=== PATIENT | male | born 1950 | race Caucasian/White ===

== ENCOUNTER 2019-10-11 14:57 | Emergency (ER) | payer MEDICARE, SELFPAY ==
[2019-10-11] VITALS (12 sets, daily range): BP systolic 115–143; BP diastolic 60–84; PULSE 98–107; RESP 14–110; TEMP 35.9–37.3; O2SAT 98–100
--- NOTE | ~2019-10-11 | XR_ITS ---
EXAMINATION: XR chest 1V portable EXAM DATE: 10/11/2019 16:51 INDICATION: Shortness of breath. TECHNIQUE: Frontal chest x-ray portable semierect projection. Comparison is made to prior examinatio n from 01/25/2019. FINDINGS: The lungs are clear. There are no pleural effusions. The cardiomediastinal silhouette is within normal limits. There is no pneumothorax suspected. The bones and soft tissues are unremarkab le. IMPRESSION: No acute cardiopulmonary findings. Reviewed, dictated and finalized at location [facility]. [employer]
--- NOTE | 2019-10-11 15:12 | ECG_ITS ---
Measurements Intervals [place] Rate: 102 P: 55 HI: 157 QRS: 50 QRSD: 86 T: 60 QT: 349 QTc: 455 Interpretive Statements SINUS TACHYCARDIA BASELINE ARTIFACT- I, II, III, AVR, V1 BORDERLINE ECG Electronically Signed On 10-11-2019 15:25:[address] [employer] by Eugenio Ray D.O.
[2019-10-11 15:52] LABS: Basophils Absolute Auto 0.03 K/mm3 (0.00-0.10); Basophils Percent Auto 0.2 % (0.0-1.0); Eosinophils Absolute Auto 0.02 K/mm3 (0.02-0.50); Eosinophils Percent Auto 0.1 % (1.0-6.0); Immature Granulocyte Absolute 0.12 K/mm3 (0.00-0.00); Immature Granulocyte Percent A 0.7 % (0.0-0.0); Lymphocytes Percent Auto 9.6 % (18.0-42.0); Mean Corpuscular HGB Conc 32.6 g/dL (32.0-36.0); Mean Corpuscular Hemoglobin 27.8 pg (27.0-31.0); Mean Corpuscular Volume 85.2 fL (78.0-102.0); Mean Platelet Volume 10.7 fl (8.7-11.0); Monocytes Absolute Auto 0.96 K/mm3 (0.10-0.90); Monocytes Percent Auto 5.8 % (2.0-11.0); Neutrophils Absolute Auto 13.9 K/mm3 (1.7-7.2); Neutrophils Percent Auto 83.6 % (50.0-70.0); Platelet Count Result 318 K/mm3 (150-420); Red Blood Count 2.16 M/mm3 (4.70-6.10); Red Cell Distribution Width 15.1 % (11.6-14.4); White Blood Count 16.7 K/mm3 (4.8-10.8)
[2019-10-11 15:55] LABS: Hematocrit 18.4 % (37.0-46.0)
[2019-10-11 16:04] LABS: INR 1.1; Partial Thromboplastin Time 20.3 SEC (22.3-31.6); Prothrombin Time 11.2 Seconds (9.64-11.0)
[2019-10-11 16:10] LABS: Occult Blood Positive (Negative)
[2019-10-11 16:10] LABS: Alanine Aminotransferase 22 U/L (16-63); Albumin Level 3.1 g/dL (3.4-5.0); Alkaline Phosphatase 41 U/L (46-116); Anion Gap 14.1 mmol/L (7-16); Aspartate Amino Transferase 14 U/L (15-37); Bilirubin,Total 0.8 mg/dL (0.00-1.00); Blood Urea Nitrogen 52 mg/dL (7-18); Calcium 7.9 mg/dL (8.5-10.1); Carbon Dioxide 26 mmol/L (21-32); Chloride 101 mmol/L (98-108); Estimated Glomerular Filt Rate 51; Glucose 172 mg/dL (70-99); Osmolality Calculated 304 mOsm/kg (285-295); Potassium 3.1 mmol/L (3.5-5.1); Sodium 138 mmol/L (136-145); Total Protein 5.7 g/dL (6.4-8.2)
--- NOTE | 2019-10-11 16:14 | ED.WEAKNESS ---
HPI - Weakness General Chief complaint: Weakness Stated complaint: weak, sob Time Seen by Provider: 10/11/19 15:20 Source: patient and family Mode of arrival: wheelchair Limitations: other ( weakness) History of Present Illness HPI Narrative: Chinmay is a very pleasant 69-year-old male patient. He comes by wheelchair from the office of . Chinmay had gone to 's office for weakness. He has been feeling weak for the past few days. On his cli nical examination, suspected anemia. He was sent from the office by wheelchair. Chinmay has been on aspirin and Plavix since he had a stroke on January 26, 2019. He was treated at [facility] for this. He was there for 2 weeks. Besides the stroke, Chinmay denies history of other medical problems. He does has history of hypertension. he is on medication for this. He has no history of any heart problems. He has never been a smoker.Dr Mendoza suspected GI blood loss from aspirin and Plavix. His rectal examination done in the emergency room shows a positive Hemoccult test. He has a prostatic nodule. The notes from report that the patient has had a prostatic biopsy and has prostatic calculi. However, the last time Chinmay was seen by the urologist was more than 2 years ago. I strongly advised him to see a urologist again for follow-up. the tells me that Chinmay had an EGD done by Dr. Osei in July 2019 at [facility]. At that time he was prescribed omeprazole. He took it for some time and then stopped it on his own, apparently because he thought he was taking too many pills. Complaint: generalized weakness Onset (ago): day(s) ( 2-3 days) Duration: constant Location: generalized Relieving factors: other ( feels better when resting) Exacerbating factors: exertion Context: other Associated symptoms: shortness of breath Related Data Home Medications Medication Instructions Recorded Confirmed atorvastatin 40 mg PO DAILY 10/11/19 10/11/19 clopidogrel 75 mg PO DAILY 10/11/19 10/11/19 duloxetine 30 mg PO DAILY 10/11/19 10/11/19 gabapentin 100 mg PO HS 10/11/19 10/11/19 hydrochlorothiazide 25 mg PO DAILY 10/11/19 10/11/19 irbesartan 75 mg PO DAILY 10/11/19 10/11/19 tramadol 50 mg PO DAILY 10/11/19 10/11/19 vardenafil 20 mg PO PRN PRN 10/11/19 10/11/19 Allergies Allergy/AdvReac Type Severity Reaction Status Date / Time lisinopril Allergy Unknown Flushing Verified 10/11/19 16:31 Review of Systems Review of Systems: All systems reviewed & are unremarkable except as noted in HPI and below Constitutional: Constitutional: Reports as per HPI, Reports no additional constitutional complaints, Denies chills and Denies fever(s) Eyes: Eyes: Reports as per HPI, Reports no additional eye complaints and Denies change in vision ENT: Reports system reviewed and no additional complaints, except as documented, Denies vertigo, Denies dizziness, Denies epistaxis and Denies sore throat Cardiovascular: Cardiovascular: Reports no additional cardiovascular complaints, Denies chest pain and Denies radiating jaw, neck or arm pain Respiratory: Respiratory: Reports as per HPI, Denies chest congestion, Denies cough, Reports dyspnea and Denies wheezing Gastrointestinal: Gastrointestinal: Reports no additional gastrointestinal complaints, Denies abdominal pain, Denies diarrhea, Denies nausea and Denies vomiting Genitourinary: Genitourinary: Reports no additional male genitourinary complaints, Denies hematuria and Denies dysuria Comments: see HPI narrative for details Musculoskeletal: Musculoskeletal: Reports no additional musculoskeletal complaints and Denies back pain Integumentary/Breasts: Skin/Breast: Reports system reviewed and no additional complaints, except as docu and Denies rash Neurologic: Reports system reviewed and no additional complaints, except as documented, Denies dizziness, Denies syncope, Denies headache(s), Denies foca
--- NOTE | 2019-10-11 16:24 | PC.NURSE ---
OXYGEN 2 L APPLIED - AWAITING BLOOD FROM LAB - NO CHANGE IN PATIENT STATUS
[2019-10-11] MEDS: SODIUM CHLORIDE 0.9% IV 1,000 ML 1 ML (16:37)
--- NOTE | 2019-10-11 16:39 | PC.NURSE ---
[facility] CALLED FOR POSSIBLE ADMISSION - PT STATES HE HAS SEEN DR LINDER IN THE PAST FOR THIS AND TOOK HIMSELF OFF OF [facility]
[2019-10-11 16:55] LABS: BNP 5.4 pg/mL (0-100)
[2019-10-11 16:59] LABS: Creatine Kinase 49 U/L (39-308); Troponin I < 0.02 ng/mL (0.00-0.056)
--- NOTE | 2019-10-11 17:50 | PC.NURSE ---
[facility] DECLINED TRANSFER - [facility] CALLED FOR POSSIBLE BED ASSIGNMENT PER PT REQUEST
--- NOTE | 2019-10-11 18:40 | PC.NURSE ---
PT IS TAKEN TO 210 FOR ER HOLD TO AWAIT BED ASSIGNMENT AT [facility] - BLOOD INFUSED IN ROOM - IV FLUSHED - REPORT CALLED TO VOLODYMYR WRIGHT
--- NOTE | 2019-10-11 19:15 | PC.NURSE ---
Patient to room 210. Saline lock noted to RAC. Patient denies pain/complaints/needs @ this time. No distress noted. Call light in reach.
[2019-10-11 19:32] LABS: Hematocrit 24.6 % (37.0-46.0); Hemoglobin 7.5 g/dL (12.4-15.3); Mean Corpuscular HGB Conc 30.5 g/dL (32.0-36.0); Mean Corpuscular Hemoglobin 28.1 pg (27.0-31.0); Mean Corpuscular Volume 92.1 fL (78.0-102.0); Mean Platelet Volume 10.4 fl (8.7-11.0); Platelet Count Result 411 K/mm3 (150-420); Red Blood Count 2.67 M/mm3 (4.70-6.10); Red Cell Distribution Width 15.7 % (11.6-14.4)
[2019-10-11 19:36] LABS: White Blood Count 21.1 K/mm3 (4.8-10.8)
[2019-10-11 20:24] LABS: BNP 11.8 pg/mL (0-100)
[2019-10-11 20:28] LABS: Lactic Acid 3.1 mmol/L (0.4-2.0)
--- NOTE | 2019-10-11 21:00 | PC.NURSE ---
Patient sitting in bedside chair talking with visitors. No distress noted. Call light in reach.
[2019-10-11] MEDS: SODIUM CHLORIDE 0.9% IV 250 ML 30 ML IV CONT (22:15)
--- NOTE | 2019-10-11 22:30 | PC.NURSE ---
Blood transfusion infusing without difficulty. No distress noted. Call light in reach.
--- NOTE | 2019-10-12 00:16 | PC.NURSE ---
Blood transfusion started to saline lock in RAC. Site flushes with ease. Patient denies pain/complaints/needs @ this time. No distress noted. Call light and personal belongings within reach.
--- NOTE | 2019-10-12 00:18 | PC.NURSE ---
Patient resting in bed. No distress noted. Denies pain/complaints/needs @ this time. No distress noted. Call light and personal belongings within reach.
[2019-10-12 00:30] VITALS: BP 126/73; PULSE 102; RESP 18; TEMP 36.9; O2SAT 99
[2019-10-12 00:45] VITALS: BP 124/68; PULSE 101; RESP 18; TEMP 36.8; O2SAT 99
--- NOTE | 2019-10-12 01:10 | PC.NURSE ---
Patient appears to be sleeping by the rise and fall of his chest. No distress noted. Call light in reach.
--- NOTE | 2019-10-12 01:40 | PC.NURSE ---
Blood finished transfusing. Patient tolerated well. Saline lock to RAC remains patent. Patient denies pain/complaints/needs @ this time except that he has the hiccups and can't get rid of them. No distress noted. Call light in reach.
[2019-10-12 02:32] LABS: Hematocrit 23.1 % (37.0-46.0); Hemoglobin 7.6 g/dL (12.4-15.3); Mean Corpuscular HGB Conc 32.9 g/dL (32.0-36.0); Mean Corpuscular Hemoglobin 28.8 pg (27.0-31.0); Mean Corpuscular Volume 87.5 fL (78.0-102.0); Mean Platelet Volume 10.5 fl (8.7-11.0); Platelet Count Result 343 K/mm3 (150-420); Red Blood Count 2.64 M/mm3 (4.70-6.10); Red Cell Distribution Width 14.9 % (11.6-14.4); White Blood Count 19.1 K/mm3 (4.8-10.8)
--- NOTE | 2019-10-12 03:49 | PC.NURSE ---
Dr. Greene notified of last lab results
--- NOTE | 2019-10-12 03:57 | PC.NURSE ---
Spoke with [facility] to check on waiting time for bed. Informed admitting of new lab results. Stated she was add to patients chart but at this time a bed will probably not be available until mid morning or afternoon
[2019-10-12 04:05] VITALS: BP 145/71; PULSE 98; RESP 18; TEMP 36.7; O2SAT 98
--- NOTE | 2019-10-12 05:50 | PC.NURSE ---
Patient appears to be sleeping by the rise and fall of his chest. Respirations even and unlabored. No distress noted. Call light in reach.
--- NOTE | 2019-10-12 06:32 | PC.NURSE ---
Patient appears to be sleeping by the rise and fall of his chest. Respirations even and unlabored. No distress noted. Call light within reach.
[2019-10-12 08:22] VITALS: BP 137/72; PULSE 102; RESP 18; TEMP 36.6; O2SAT 98
--- NOTE | 2019-10-12 08:24 | PC.NURSE ---
Patient denies pain,nausea,dizziness. Call light in reach.
[2019-10-12 11:14] VITALS: BP 138/76; PULSE 96; RESP 20; TEMP 36.8; O2SAT 98
--- NOTE | 2019-10-12 11:15 | PC.NURSE ---
Patient states he feels ok.
--- NOTE | 2019-10-12 15:34 | PC.NURSE ---
CALL PLACED TO [facility], NO BED AVAILABLE - CALL PLACED TO DR LINDER AT [facility], NO BED AVAILABILITY - CALL PLACED TO [facility] WITH BED AVAILABLE - SPOKE AGAIN WITH DR LINDER ABOUT FOLLOW UP IN THE OFFICE - ERP AT BEDSIDE WITH FAMILY AND THEY ARE AGREEABLE WITH FOLLOW UP OUTPATIENT TOMORROW.
--- NOTE | 2019-10-12 15:39 | ED.WEAKNESS ---
HPI - Weakness General Chief complaint: Weakness Stated complaint: weak, sob Time Seen by Provider: 10/11/19 15:20 Source: patient and family Mode of arrival: wheelchair Limitations: other ( weakness) History of Present Illness Complaint: generalized weakness Location: generalized Relieving factors: other ( feels better when resting) Exacerbating factors: exertion Context: other Associated symptoms: shortness of breath Related Data Home Medications Medication Instructions Recorded Confirmed atorvastatin 40 mg PO DAILY 10/11/19 10/11/19 clopidogrel 75 mg PO DAILY 10/11/19 10/11/19 duloxetine 30 mg PO DAILY 10/11/19 10/11/19 gabapentin 100 mg PO HS 10/11/19 10/11/19 hydrochlorothiazide 25 mg PO DAILY 10/11/19 10/11/19 irbesartan 75 mg PO DAILY 10/11/19 10/11/19 tramadol 50 mg PO DAILY 10/11/19 10/11/19 vardenafil 20 mg PO PRN PRN 10/11/19 10/11/19 Allergies Allergy/AdvReac Type Severity Reaction Status Date / Time lisinopril Allergy Unknown Flushing Verified 10/11/19 16:31 PMFSH Past Medical History Medical History (Updated 10/11/19 @ 19:59 by Tavares Greene MD) CVA, old, hemiparesis Hypertension Surgical History Surgical History (Updated 10/11/19 @ 16:29 by Tavares Greene MD) History of tonsillectomy Family History Family History (Updated 10/11/19 @ 16:30 by Tavares Greene MD) Mother Heart disease Father Heart disease Social History Social History Smoking status: Never smoker Alcohol intake: never Course Course Emergency Course: Patient has been in ER hold for the last 24 hours has been stable received 2units of packed red blood cells, this is cross coverage was seen by Dr. Mack previously, the patient has some improved H&H status current blood pressure is 138/76 with a heart rate of 90, talked to the patient's some GI doctor and agreed to see the patient tomorrow on 2019 for further workup with possible EGD and colonoscopy. Talk to family and they are agreeable that the they will call for an appointment to see there are GI doctor in his clinic for further workup and evaluation. The patient denies any abdominal pain and there has not been any GI bleed no rectal bleeding no nausea vomiting no abdominal pain. Vital Signs Vital signs: Vital Signs Temperature 36.7 C 10/11/19 15:05 Pulse Rate 103 H 10/11/19 15:05 Respiratory Rate 16 10/11/19 15:05 Blood Pressure 117/68 10/11/19 15:05 Pulse Oximetry 100 10/11/19 15:05 Temperature 36.8 C 10/12/19 11:14 Pulse Rate 96 10/12/19 11:14 Respiratory Rate 20 10/12/19 11:14 Blood Pressure 138/76 10/12/19 11:14 Pulse Oximetry 98 10/12/19 11:14 MDM - Weakness Lab Data Result diagrams: 10/12/19 02:28 10/11/19 15:12 Labs: Lab Results 10/11/19 10/11/19 10/11/19 Range/Units 15:12 15:12 15:12 WBC 16.7 H (4.8-10.8) K/mm3 RBC 2.16 L (4.70-6.10) M/mm3 Hgb 6.0 L* (12.4-15.3) g/dL Hct 18.4 L* (37.0-46.0) % MCV 85.2 (78.0-102.0) fL MCH 27.8 (27.0-31.0) pg MCHC 32.6 (32.0-36.0) g/dL RDW 15.1 H (11.6-14.4) % Plt Count 318 (150-420) K/mm3 MPV 10.7 (8.7-11.0) fl Immature Gran % (Auto) 0.7 H (0.0-0.0) % Neut % (Auto) 83.6 H (50.0-70.0) % Lymph % (Auto) 9.6 L (18.0-42.0) % Adams % (Auto) 5.8 (2.0-11.0) % Eos % (Auto) 0.1 L (1.0-6.0) % Baso % (Auto) 0.2 (0.0-1.0) % Lymph # (Auto) 1.60 (1.10-4.50) K/mm3 Adams # (Auto) 0.96 H (0.10-0.90) K/mm3 Eos # (Auto) 0.02 (0.02-0.50) K/mm3 Baso # (Auto) 0.03 (0.00-0.10) K/mm3 Abs Immat Gran (auto) 0.12 H (0.00-0.00) K/mm3 Absolute Neuts (auto) 13.9 H (1.7-7.2) K/mm3 Absolute Nucleated RBC 0.00 (0.00-0.00) K/mm3 Nucleated RBC % 0.0 (0-0.0) % PT 11.2 H (9.64-11.0) Seconds INR 1.1 APTT 20.3 L (22.3-31.6) SEC Sodium (136-145) mmol/L Potassium (3.5-5.1) mmol/L Chlo
--- NOTE | 2019-10-12 15:45 | PC.NURSE ---
Patient transported off of floor by ER nurse
[2019-10-12 15:54] VITALS: BP 163/79; PULSE 104; O2SAT 99
--- NOTE | 2019-11-09 13:12 | PC.NURSE ---
Patnoprazole discontinued at 3 [id number]
== END 2019-10-12 16:10 | disposition home or self-care (01) ==
PROVIDERS: Emergency Provider Surgery; PCP Internal Medicine
DX: D64.9 Anemia, unspecified (principal); K92.2 Gastrointestinal hemorrhage, unspecified; Z86.73 Personal history of transient ischemic attack (TIA), and cerebral infarction without residual deficits; I10 Essential (primary) hypertension; R06.00 Dyspnea, unspecified
CPT/HCPCS: 36415; 36430; 71045; 80053; 82272; 82550; 82553; 83605; 83880; 84484; 85025; 85027; 85610; 85730; 86850; 86900; 86901; 86920; 86923; 87040; 93005; 96361; 96365; 96366; 96367; 99284; 99285; A9270; C9113; J2543; J7030; J7050; J7060; P9016

== ENCOUNTER 2019-10-13 02:57 | Day surgery (SDC) | payer MEDICARE, SELFPAY ==
[2019-10-13 08:45] VITALS: BMI 27.6
[2019-10-13 10:26] VITALS: BP 144/69; PULSE 100; RESP 16; TEMP 37.3; O2SAT 100; BMI 28.5
--- NOTE | 2019-10-13 10:46 | WPDANESEPPF ---
Anes - Initial Pre Proc Eval Procedure: Operation Date: 10/13/19 12:00 Proposed Procedures p Esophagogastroduodenoscopy - Fito Aguayo MD Date/Time: 10/13/19 10:46 Surgeon: Fito Aguayo MD Pre Op Diagnosis: Intestinal Bleed Patient Data Age: 69 Gender: M Height: 1.7 m Weight: 80 kg Allergies Allergy/AdvReac Type Severity Reaction Status Date / Time lisinopril Allergy Unknown Itching Verified 10/13/19 08:35 Home Medications Medication Instructions Recorded Confirmed Type atorvastatin 40 mg PO DAILY 10/11/19 10/13/19 History clopidogrel 75 mg PO DAILY 10/11/19 10/13/19 History duloxetine 30 mg PO BID 10/11/19 10/13/19 History hydrochlorothiazide 25 mg PO DAILY 10/11/19 10/13/19 History irbesartan 75 mg PO DAILY 10/11/19 10/13/19 History pantoprazole 40 mg PO HS 10/13/19 10/13/19 History Patient hx anesthesia problems: none Family hx anesthesia problems: none PMFSH Past Medical History Medical History (Updated 10/13/19 @ 10:47 by Raúl Caballero MD) BPH (benign prostatic hyperplasia) CVA, old, 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 RIGHT SIDED WEAKNESS AND RIGHT SLDR PAIN Gastroesophageal reflux disease Hypercholesterolemia Hypertension PUD (peptic ulcer disease) NON BLEEDING GASTRIC 06/2019 Surgical History Surgical History (Updated 10/11/19 @ 16:29 by Tavares Greene MD) History of tonsillectomy Family History Family History (Updated 10/11/19 @ 16:30 by Tavares Greene MD) Mother Heart disease Father Heart disease Social History Social History Smoking status: Never smoker Alcohol intake: never Anes - Eval Final PreProcedure Day of Procedure 10/13/19 10:46 Patient weight: overweight Heart: regular rate and rhythm Lungs: clear to auscultation and normal air movement Airway: Mallampati scale class II Neurological: alert and oriented Last oral intake: >/= 8 hours ASA classification: III Emergent: no Anesthetic plan: proceed Anesthesia type and monitoring: general GIVS Informed Consent: The patient's anesthetic plan and its attendant risks and benefits were discussed with the patient/family/POA. Questions were solicited and answers provided to the satisfaction of the patient/family/POA.
[2019-10-13] MEDS: LACTATED RINGERS 1,000 ML 150 ML IV CONT (11:28)
--- NOTE | 2019-10-13 12:25 | PM.HPGS ---
History of Present Illness History of Present Illness Consent: Risks, benefits, and alternatives have been discussed and questions answered. Patient agrees to proceed with procedure. Chief complaint: Intestinal Bleed Narrative: Chinmay Julian is a 69 year old male with symtomatic anemia that required blood transfusion yesterday at [facility]. EGD several weeks by me showed non-bleeding ulcers however he has not been taking PPI as he was supposed to. He never had a colonoscopy. Review of Systems Constitutional: Constitutional: Reports lethargy and Reports malaise Eyes: Eyes: Denies blurry vision ENT: Reports Normal hearing present, Denies headache(s) and Denies neck pain Cardiovascular: Cardiovascular: Denies chest pain and Denies dyspnea Respiratory: Respiratory: Denies dyspnea Gastrointestinal: Gastrointestinal: Reports no additional gastrointestinal complaints Genitourinary: Genitourinary: Denies dysuria Musculoskeletal: Musculoskeletal: Denies neck pain Integumentary/Breasts: Skin/Breast: Denies dry skin Neurologic: Reports Normal hearing present, Denies headache(s) and Denies weakness Psychiatric: Psychiatric: Denies anxiety Endocrine: Endocrine: Denies change in body appearance Hematologic/Lymphatic: Hematologic/Lymphatic: Denies easy bleeding Allergic/Immunologic: Allergic/Immunologic: Denies urticaria PMFSH Past Medical History Medical History (Updated 10/13/19 @ 12:27 by Fito Aguayo MD) Acute blood loss anemia BPH (benign prostatic hyperplasia) CVA, old, 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 RIGHT SIDED WEAKNESS AND RIGHT SLDR PAIN Gastroesophageal reflux disease Hypercholesterolemia Hypertension PUD (peptic ulcer disease) NON BLEEDING GASTRIC 06/2019 Surgical History Surgical History (Updated 10/11/19 @ 16:29 by Tavares Greene MD) History of tonsillectomy Family History Family History (Updated 10/11/19 @ 16:30 by Tavares Greene MD) Mother Heart disease Father Heart disease Social History Social History Smoking status: Never smoker Alcohol intake: never Meds Home Medications and Allergies Home Medications Medication Instructions Recorded Confirmed Type atorvastatin 40 mg PO DAILY 10/11/19 10/13/19 History clopidogrel 75 mg PO DAILY 10/11/19 10/13/19 History duloxetine 30 mg PO BID 10/11/19 10/13/19 History hydrochlorothiazide 25 mg PO DAILY 10/11/19 10/13/19 History irbesartan 75 mg PO DAILY 10/11/19 10/13/19 History pantoprazole 40 mg PO HS 10/13/19 10/13/19 History Allergies Allergy/AdvReac Type Severity Reaction Status Date / Time lisinopril Allergy Unknown Itching Verified 10/13/19 11:12 Vital Signs Vital Signs - 24 hr 10/13/19 10:26 Temperature 99.2 F Pulse Rate 100 Respiratory Rate 16 Blood Pressure 144/69 H Pulse Oximetry 100 Exam Const: General: comfortable and no acute distress HENMT: General nose exam: Normal nares present Eyes: General: appearance normal, both eyes and all related structures Neck: Neck: no JVD Resp: Auscultation: clear to auscultation bilaterally Cardio: Rate: regular rate Rhythm: regular rhythm GI: Inspection: non-distended GI Palp: Yes Soft to palpation Skin: General skin exam: normal color Neuro: General: gait normal Speech: normal speech Other: chronic weakness right side Extrem: General: normal to inspection Psych: Mental Status: mental status grossly normal Assessment and Plan Assessment and plan (1) Acute blood loss anemia: Code(s): D62 - Acute posthemorrhagic anemia Status: Acute Assessment and Plan: will proceed with EGD, he has not been using his PPI (2) PUD (peptic ulcer disease): Code(s): K27.9 - Peptic ulcer, site unspecified, unspecified as acute or chronic, without hemorrhage or perforation Status: Acute (3) Gastroesophageal reflux disease: Qualifiers: Esophagitis presence: esophagiti
[2019-10-13 12:30] VITALS: BP 120/66; PULSE 96; RESP 20; O2SAT 100
[2019-10-13 12:40] VITALS: BP 122/64; PULSE 88; RESP 23; O2SAT 100
[2019-10-13 12:50] VITALS: BP 138/65; PULSE 84; RESP 18; O2SAT 100
== END 2019-10-13 13:15 | disposition home or self-care (01) ==
PROVIDERS: PCP Internal Medicine; Visit Provider Internal Medicine Gastroenterology
PROC: 0DJ08ZZ Inspection of Upper Intestinal Tract, Via Natural or Artificial Opening Endoscopic (ICD-10-PCS; CPT 43235; principal; 2019-10-13 12:00)
DX: K26.9 Duodenal ulcer, unspecified as acute or chronic, without hemorrhage or perforation (principal); K22.5 Diverticulum of esophagus, acquired; K22.2 Esophageal obstruction; K44.9 Diaphragmatic hernia without obstruction or gangrene; K29.80 Duodenitis without bleeding; D62 Acute posthemorrhagic anemia; I10 Essential (primary) hypertension; E78.00 Pure hypercholesterolemia, unspecified; K21.9 Gastro-esophageal reflux disease without esophagitis; N40.0 Benign prostatic hyperplasia without lower urinary tract symptoms; I69.351 Hemiplegia and hemiparesis following cerebral infarction affecting right dominant side; Z79.02 Long term (current) use of antithrombotics/antiplatelets
CPT/HCPCS: 43235; J2704; J7120

== ENCOUNTER 2019-10-27 16:56 | Outpatient (CLI) | payer MEDICARE, SELFPAY ==
[2019-10-27 17:18] LABS: Basophils Absolute Auto 0.02 K/mm3 (0.00-0.10); Basophils Percent Auto 0.4 % (0.0-1.0); Eosinophils Percent Auto 6.6 % (1.0-6.0); Hematocrit 30.1 % (37.0-46.0); Hemoglobin 9.1 g/dL (12.4-15.3); Immature Granulocyte Absolute 0.01 K/mm3 (0.00-0.00); Immature Granulocyte Percent A 0.2 % (0.0-0.0); Immature Reticulocyte Fraction 17.6 % (2.0-16.52); Lymphocytes Absolute Auto 1.25 K/mm3 (1.10-4.50); Lymphocytes Percent Auto 27.6 % (18.0-42.0); Mean Corpuscular HGB Conc 30.2 g/dL (32.0-36.0); Mean Corpuscular Hemoglobin 27.3 pg (27.0-31.0); Mean Corpuscular Volume 90.4 fL (78.0-102.0); Mean Platelet Volume 9.6 fl (8.7-11.0); Monocytes Absolute Auto 0.34 K/mm3 (0.10-0.90); Monocytes Percent Auto 7.5 % (2.0-11.0); Neutrophils Absolute Auto 2.6 K/mm3 (1.7-7.2); Neutrophils Percent Auto 57.7 % (50.0-70.0); Platelet Count Result 418 K/mm3 (150-420); Red Blood Count 3.33 M/mm3 (4.70-6.10); Red Cell Distribution Width 15.9 % (11.6-14.4); Reticulocyte Hemoglobin Conten 29.6 pg (28.0-35.0); Reticulocyte Percent 3.06 % (0.50-1.50); White Blood Count 4.5 K/mm3 (4.8-10.8)
[2019-10-27 18:05] LABS: Alanine Aminotransferase 43 U/L (16-63); Albumin Level 3.2 g/dL (3.4-5.0); Alkaline Phosphatase 90 U/L (46-116); Anion Gap 13.7 mmol/L (7-16); Aspartate Amino Transferase 32 U/L (15-37); Bilirubin,Total 0.5 mg/dL (0.00-1.00); Blood Urea Nitrogen 20 mg/dL (7-18); Calcium 8.4 mg/dL (8.5-10.1); Carbon Dioxide 31 mmol/L (21-32); Chloride 102 mmol/L (98-108); Estimated Glomerular Filt Rate 57; Glucose 105 mg/dL (70-99); Osmolality Calculated 298 mOsm/kg (285-295); Potassium 3.7 mmol/L (3.5-5.1); Sodium 143 mmol/L (136-145); Total Protein 6.4 g/dL (6.4-8.2)
== END 2019-10-27 16:57 | disposition home or self-care (01) ==
LOC: CHSLAB 16:57
PROVIDERS: PCP Internal Medicine; Visit Provider Internal Medicine
DX: D64.9 Anemia, unspecified (principal)
CPT/HCPCS: 36415; 80053; 85025; 85046

== ENCOUNTER 2019-11-23 10:40 | Day surgery (SDC) | payer MEDICARE, SELFPAY ==
--- NOTE | 2019-11-23 13:07 | P.OPB_ITS ---
Procedure Note - Brief Procedure Note - Brief Date of procedure: 11/23/19 Pre-op diagnosis: egd screening colonoscopy Post-op diagnosis: other (- mild duodenitis, healed small ulcer in bulb, no bleeding. - mild gastritis - 1 cm hiatal hernia - esophageal ring, dilated at 18 mm with TTS balloon.) Procedure performed: EGD with esophageal dilation Description of procedure: After we obtained consent, the patient was brought to the endoscopy suite. After we did a time-out, the patient was placed in the left lateral decubitus position and then we put a bite block in his mouth. He received mac anesthesia. Then introduced endoscope through his mouth and was advanced under direct visualization to the esophagus, stomach and finally to the duodenum. I found duodenitis in the bulb of the duodenum, mild erythema and also evidence of a healed ulcer without any bleeding (only scarring), significantly improved from the previous endoscopy evaluation. There is no estigmata of any bleeding. Then I pulled back the scope into the stomach, careful evaluation of the stomach including the cardia and fundus on retroflexed view showed evidence of mild gastritis with only erythema without any ulcers, no erosions. Then I pulled back the scope and the hiatus is located 38 cm with the GE junction at 39 cm, this is about 1 cm in size, I also found a non- obstructive esophageal ring at the cardia, and I decided to introduce a TTS balloon was inflated at 18 mm for 30 seconds across the ring, at the end of the dilatation I notice an expected small tear. The remainder of the esophagus was unremarkable. Then I removed the scope Anesthesia: MAC Surgeon: Fito Aguayo MD Complications: No immediate complications Condition: stable Disposition: other (- keep using PPI) Findings: - mild duodenitis, healed small ulcer in bulb, no bleeding. - mild gastritis - 1 cm hiatal hernia - esophageal ring, dilated at 18 mm with TTS balloon.
--- NOTE | 2019-11-23 13:17 | PM.OP ---
Procedure Note - Brief Procedure Note - Brief Date of procedure: 11/23/19 Pre-op diagnosis: egd screening colonoscopy screening colonoscopy, never had one. Procedure performed: colonoscopy with polypectomy (forceps) Description of procedure: patient signed consent and he was agreeable to proceed. He was brought to the endoscopy suite, we did a time-out and used mac anesthesia. He was placed in the left lateral decubitus position and after he was sedated I performed a rectal exam that was unremarkable. Then I introduced the colonoscope through the anus and advanced under direct visualization to the cecum. I identified the appendiceal orifice and the ileocecal valve. The quality of the prep was good. Then I started withdrawing the scope very slowly for which I took more than 6 minutes of careful evaluation. I found a 2 mm polyp in the cecum that was removed using biopsy forceps polypectomy technique. Other than that there was no any other polyps, there was no colitis. I found several diverticula throughout the colon consistent with moderate diverticulosis but no any active inflammation. Finally retroflexed view of the rectum was unremarkable. Then I removed the scope. Surgeon: Fito Aguayo MD Pathology: yes Complications: No immediate complications Condition: stable Findings: - diverticulosis and small polyp in cecum removed with biopsy - next colonoscopy in 5 years - follow up with pcp as needed
== END 2019-11-23 14:00 | disposition home or self-care (01) ==
LOC: CHSSURGERY 10:43
PROVIDERS: PCP Internal Medicine; Visit Provider Internal Medicine Gastroenterology
DX: D62 Acute posthemorrhagic anemia (principal); Z12.11 Encounter for screening for malignant neoplasm of colon; K27.9 Peptic ulcer, site unspecified, unspecified as acute or chronic, without hemorrhage or perforation; D12.0 Benign neoplasm of cecum; K22.2 Esophageal obstruction; K44.0 Diaphragmatic hernia with obstruction, without gangrene; K29.80 Duodenitis without bleeding; K21.9 Gastro-esophageal reflux disease without esophagitis; K57.90 Diverticulosis of intestine, part unspecified, without perforation or abscess without bleeding; I69.351 Hemiplegia and hemiparesis following cerebral infarction affecting right dominant side; I10 Essential (primary) hypertension
CPT/HCPCS: 43249; 45380; 813; 88305; C1726; J2704; J7120

== ENCOUNTER 2019-11-26 10:30 | Outpatient (CLI) | payer MEDICARE, SELFPAY ==
[2019-11-26 11:02] LABS: Basophils Absolute Auto 0.05 K/mm3 (0.00-0.10); Basophils Percent Auto 0.8 % (0.0-1.0); Eosinophils Absolute Auto 0.29 K/mm3 (0.02-0.50); Eosinophils Percent Auto 4.6 % (1.0-6.0); Hematocrit 44.4 % (37.0-46.0); Hemoglobin 13.9 g/dL (12.4-15.3); Immature Granulocyte Absolute 0.01 K/mm3 (0.00-0.00); Immature Granulocyte Percent A 0.2 % (0.0-0.0); Lymphocytes Absolute Auto 1.64 K/mm3 (1.10-4.50); Lymphocytes Percent Auto 25.9 % (18.0-42.0); Mean Corpuscular HGB Conc 31.3 g/dL (32.0-36.0); Mean Corpuscular Hemoglobin 27.5 pg (27.0-31.0); Mean Corpuscular Volume 87.9 fL (78.0-102.0); Mean Platelet Volume 10.6 fl (8.7-11.0); Monocytes Absolute Auto 0.54 K/mm3 (0.10-0.90); Monocytes Percent Auto 8.5 % (2.0-11.0); Neutrophils Absolute Auto 3.8 K/mm3 (1.7-7.2); Platelet Count Result 288 K/mm3 (150-420); Red Blood Count 5.05 M/mm3 (4.70-6.10); Red Cell Distribution Width 14.2 % (11.6-14.4); White Blood Count 6.3 K/mm3 (4.8-10.8)
[2019-11-26 11:39] LABS: Ferritin 19 ng/mL (26-388); Prostate Specific Antigen 10.8 ng/mL (< OR = 4.0)
== END 2019-11-26 10:31 | disposition home or self-care (01) ==
LOC: CHSLAB 10:31
PROVIDERS: PCP Internal Medicine; Visit Provider Urology
DX: D64.9 Anemia, unspecified (principal); Z12.5 Encounter for screening for malignant neoplasm of prostate
CPT/HCPCS: 36415; 82728; 84153; 85025; G0103

== ENCOUNTER 2020-08-11 23:40 | Emergency (ER) | payer MEDICARE, SELFPAY ==
--- NOTE | ~2020-08-11 | XR_ITS ---
EXAMINATION: XR chest 1V portable 08/12/2020 00:17 INDICATION: Right-sided weakness. Hypertension. PROCEDURE: PA and lateral views of the chest COMPARISON: Comparison to multiple prior studies sequentially, with oldest reviewed study dated 06/04. FINDINGS: The lungs are clear. The cardiomediastinal silhouette is within normal limits. There are no pleural effusions. There is no pneumothorax suspected. IMPRESSION: 1: NO ACUTE CARDIOPULMONARY DISEASE. Reviewed, dictated and finalized at location A. CH LIBRARY CLERK
--- NOTE | ~2020-08-11 | CT_ITS ---
EXAMINATION: CT brain wo con DATE: 08/12/2020 00:16 INDICATION: Right upper extremity weakness. History of stroke. TECHNIQUE: Computed tomography (CT) of the head was performed without intravenous contrast. The dose- length product was 605.33 mGy-cm. The mA was adjusted according to patient size. Iterative reconstruc tion technique was employed. COMPARISON: CT dated 01/26/2019 FINDINGS: There is a chronic infarction of the left basal ganglia/clemons radiata. No acute intracrani al hemorrhage, infarction, mass or mass effect. No ventriculomegaly or midline shift. Basilar cistern s are patent. Paranasal sinuses and mastoids are pneumatized. No depressed skull fractures. IMPRESSION: 1. No acute intracranial abnormality. 2: Chronic infarction of the left basal ganglia/clemons radiata. Reviewed, dictated and finalized at location A. KEEPER
--- NOTE | 2020-08-11 23:50 | ED.AMS ---
HPI - Altered Mental Status General Chief Complaint: Altered Mental Status Stated Complaint: 70YO male w/ 2hr (9:40pm) gradual onset of RUE weakness while watching a movie. Patient has been off his blood thinner since thanksgiving sec to seed implants placement in his prostate. He comes into ED w/ his for eval. STROKE SYMPTOMS Related Data Home Medications Medication Instructions Recorded Confirmed atorvastatin 40 mg PO DAILY 10/11/19 08/12/20 clopidogrel 75 mg PO DAILY 10/11/19 08/12/20 duloxetine 30 mg PO BID 10/11/19 08/12/20 hydrochlorothiazide 25 mg PO DAILY 10/11/19 08/12/20 irbesartan 75 mg PO DAILY 10/11/19 08/12/20 Allergies Allergy/AdvReac Type Severity Reaction Status Date / Time lisinopril Allergy Unknown Itching Verified 01/21/20 09:17 Review of Systems Review of Systems: All systems reviewed & are unremarkable except as noted in HPI and below Constitutional: Constitutional: Reports no additional constitutional complaints and Reports fever(s) Eyes: Eyes: Reports no additional eye complaints ENT: Reports system reviewed and no additional complaints, except as documented Cardiovascular: Cardiovascular: Reports no additional cardiovascular complaints Respiratory: Respiratory: Reports no additional respiratory complaints Gastrointestinal: Gastrointestinal: Reports no additional gastrointestinal complaints Genitourinary: Genitourinary: Reports dysuria Musculoskeletal: Musculoskeletal: Reports no additional musculoskeletal complaints Integumentary/Breasts: Skin/Breast: Reports system reviewed and no additional complaints, except as docu Neurologic: Reports system reviewed and no additional complaints, except as documented, Denies vertigo, Denies dizziness, Denies syncope, Reports headache(s) and Reports focal weakness (H/O RUE Weakness) Psychiatric: Psychiatric: Reports no additional psychiatric complaints Endocrine: Endocrine: Reports no additional endocrine complaints Hematologic/Lymphatic: Hematologic/Lymphatic: Reports no additional hematologic/lymphatic complaints Allergic/Immunologic: Allergic/Immunologic: Reports no additional allergic/immunologic complaints [facility] Past Medical History Medical History Acute blood loss anemia BPH (benign prostatic hyperplasia) CVA, old, 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 RIGHT SIDED WEAKNESS AND RIGHT SLDR PAIN Gastroesophageal reflux disease Hypercholesterolemia Hypertension Prostate CA PUD (peptic ulcer disease) NON BLEEDING GASTRIC 06/2019 Surgical History Surgical History History of tonsillectomy Family History Family History Mother Heart disease Father Heart disease Social History Social History Smoking status: Never smoker Alcohol intake: never Gender identity (if verbalized by the patient): Male Exam Const: General: healthy appearing, no acute distress and alert Nutritional Appearance: well nourished Orientation/consciousness: patient oriented x3 Limitations: no limitations HENMT: Head: normal to inspection General nose exam: Normal nares present Face and sinus: normal facial exam Mouth: Yes lip normal and Yes moist mucous membranes Teeth and gingiva: dentition normal Eyes: Conjunctivae: conjunctivae normal EOM: EOMs intact bilaterally Direct Ophthalmoscopy: no photophobia Neck: Neck: normal visual inspection and no lymphadenopathy Chest: Chest palpation & inspection: normal inspection of the chest Resp: Effort & Inspection: normal respiratory effort Auscultation: clear to auscultation bilaterally Cardio: Rate: regular rate Rhythm: regular rhythm GI: Inspection: non-distended GI Palp: Yes Soft to palpation, No Tenderness to palpation present (GI) and No Guarding due to palpatio
[2020-08-12 00:04] VITALS: BP 168/85; PULSE 88; RESP 16; TEMP 38; O2SAT 95
[2020-08-12 00:23] LABS: Basophils Absolute Auto 0.04 K/mm3 (0.00-0.10); Basophils Percent Auto 0.3 % (0.0-1.0); Eosinophils Absolute Auto 0.14 K/mm3 (0.02-0.50); Eosinophils Percent Auto 1.2 % (1.0-6.0); Hematocrit 55.6 % (37.0-46.0); Hemoglobin 17.7 g/dL (12.4-15.3); Immature Granulocyte Absolute 0.03 K/mm3 (0.00-0.00); Immature Granulocyte Percent A 0.3 % (0.0-0.0); Lymphocytes Absolute Auto 1.28 K/mm3 (1.10-4.50); Lymphocytes Percent Auto 11.1 % (18.0-42.0); Mean Corpuscular HGB Conc 31.8 g/dL (32.0-36.0); Mean Corpuscular Hemoglobin 27.7 pg (27.0-31.0); Mean Corpuscular Volume 87.1 fL (78.0-102.0); Mean Platelet Volume 9.8 fl (8.7-11.0); Monocytes Absolute Auto 1.09 K/mm3 (0.10-0.90); Monocytes Percent Auto 9.5 % (2.0-11.0); Neutrophils Absolute Auto 8.9 K/mm3 (1.7-7.2); Neutrophils Percent Auto 77.6 % (50.0-70.0); Platelet Count Result 287 K/mm3 (150-420); Red Blood Count 6.38 M/mm3 (4.70-6.10); Red Cell Distribution Width 13.1 % (11.6-14.4); White Blood Count 11.5 K/mm3 (4.8-10.8)
[2020-08-12 00:37] LABS: Add Urine Microscopic? YES; Appearance Urine Sl Cloudy (Clear); Bilirubin Urine Negative (Negative); Blood Urine 3+ (Negative); Color Urine Yellow (Yellow); Glucose Urine UA Negative (Negative); Ketones Urine Negative (Negative); Leukocyte Esterase Ur 2+ LEU/UL (Negative); Nitrate Urine Positive (Negative); Partial Thromboplastin Time 26.1 SEC (23.90-30.70); Protein Urine 1+ (Negative); Prothrombin Time 10.8 Seconds (9.50-12.10); pH Urine 6.5 (5.0-8.0)
[2020-08-12 00:40] LABS: Amphetamine Screen Urine Negative (Negative); Barbiturate Screen Urine Negative (Negative); Benzodiazepines Screen Urine Negative (Negative); Cannabinoid Screen Urine Negative (Negative); Cocaine Screen Urine Negative (Negative); Methadone Screen Urine Negative (Negative); Opiate Screen Urine Negative (Negative); Phencyclidine Screen Urine Negative (Negative)
[2020-08-12 00:43] LABS: Alanine Aminotransferase 46 U/L (16-63); Albumin Level 4.1 g/dL (3.4-5.0); Alkaline Phosphatase 80 U/L (46-116); Anion Gap 8 mmol/L (8-16); Aspartate Amino Transferase 16 U/L (15-37); Bilirubin,Total 1.8 mg/dL (0.00-1.00); Blood Urea Nitrogen 22 mg/dL (7-18); Calcium 9.2 mg/dL (8.5-10.1); Carbon Dioxide 30 mmol/L (21-32); Chloride 103 mmol/L (98-108); Creatine Kinase 86 U/L (39-308); Estimated CRCL calculation 44 ml/min; Estimated Glomerular Filt Rate 53; Ethanol 4 mg/dL (0-6); Glucose 130 mg/dL (70-99); Osmolality Calculated 297 mOsm/kg (285-295); Potassium 3.5 mmol/L (3.5-5.1); Sodium 141 mmol/L (136-145); Total Protein 7.8 g/dL (6.4-8.2); Troponin I 6.5 ng/L (0.00-60.4)
[2020-08-12 00:45] LABS: Lactic Acid Reflex 1.4 mmol/L (0.4-2.0)
[2020-08-12 00:47] LABS: Bacteria Urine 4+ /hpf; RBC Urine >75 /hpf (0-2); Squamous Epithelial Cell Urine None seen /hpf (Few); WBC Urine 51-75 /hpf (0-3)
[2020-08-12 00:48] LABS: Influenza Control Valid (Valid); SARS-CoV-2 Ag Negative (Negative)
[2020-08-12] MEDS: cefTRIAXone 1 GM VIAL IM (01:15)
[2020-08-12 01:21] VITALS: BP 150/80; PULSE 82; RESP 18; TEMP 37.2; O2SAT 95
== END 2020-08-12 01:24 | disposition home or self-care (01) ==
PROVIDERS: Emergency Provider Family Medicine; PCP Internal Medicine
DX: N39.0 Urinary tract infection, site not specified (principal); I69.859 Hemiplegia and hemiparesis following other cerebrovascular disease affecting unspecified side; Z79.899 Other long term (current) drug therapy; K21.9 Gastro-esophageal reflux disease without esophagitis; E78.00 Pure hypercholesterolemia, unspecified; I10 Essential (primary) hypertension; Z85.46 Personal history of malignant neoplasm of prostate; Z20.828 Contact with and (suspected) exposure to other viral communicable diseases
CPT/HCPCS: 36415; 70450; 71045; 80053; 80307; 81001; 82550; 83605; 84484; 85025; 85610; 85730; 87077; 87086; 87088; 87186; 87426; 87804; 93005; 96372; 99283; 99284; J0696

== ENCOUNTER 2020-09-05 10:40 | Outpatient (CLI) | payer MEDICARE, SELFPAY | END 2020-09-05 10:41 | disposition home or self-care (01) | LOC: ANHSURGERY 10:42 | PROVIDERS: PCP Internal Medicine; Visit Provider Urology | DX: C61 Malignant neoplasm of prostate (principal); Z01.818 Encounter for other preprocedural examination | CPT/HCPCS: 87086 ==

== ENCOUNTER 2020-09-09 01:25 | Outpatient (CLI) | payer MEDICARE, SELFPAY ==
[2020-09-09 20:09] LABS: SARS-CoV-2 RNA PCR Negative
== END 2020-09-09 01:26 | disposition home or self-care (01) ==
LOC: ANHCOVIDDT 01:25
PROVIDERS: PCP Internal Medicine; Visit Provider Urology
DX: Z01.818 Encounter for other preprocedural examination (principal); Z20.828 Contact with and (suspected) exposure to other viral communicable diseases
CPT/HCPCS: C9803; U0003

== ENCOUNTER 2020-09-12 02:00 | Day surgery (SDC) | payer MEDICARE, SELFPAY ==
[2020-08-30 12:15] VITALS: BMI 28.5
--- NOTE | 2020-09-11 10:33 | WPDANESEPPF ---
Anes - Initial Pre Proc Eval Procedure: Operation Date: 09/12/20 13:00 Proposed Procedures p Insertion SpaceOAR Hydrogel System - Fady Terrazas MD Date/Time: 09/11/20 10:33 Surgeon: Fady Terrazas MD Pre Op Diagnosis: prostate CA Patient Data Age: 70 Gender: M Height: 1.73 m Weight: 85.28 kg Allergies Allergy/AdvReac Type Severity Reaction Status Date / Time lisinopril Allergy Mild Itching Verified 09/12/20 11:15 Home Medications Medication Instructions Recorded Confirmed Type atorvastatin 40 mg PO DAILY 10/11/19 09/12/20 History clopidogrel 75 mg PO DAILY 10/11/19 09/12/20 History duloxetine 30 mg PO BID 10/11/19 09/12/20 History hydrochlorothiazide 25 mg PO DAILY 10/11/19 09/12/20 History irbesartan 75 mg PO DAILY 10/11/19 09/12/20 History pantoprazole 40 mg PO BID #60 tablet 10/13/19 09/12/20 Rx Patient hx anesthesia problems: none Family hx anesthesia problems: none PMFSH Past Medical History Medical History Acute blood loss anemia BPH (benign prostatic hyperplasia) CVA, old, 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 RIGHT SIDED WEAKNESS AND RIGHT SLDR PAIN Gastroesophageal reflux disease Hypercholesterolemia Hypertension Prostate CA PUD (peptic ulcer disease) NON BLEEDING GASTRIC 06/2019 Surgical History Surgical History History of tonsillectomy Family History Family History Mother Heart disease Father Heart disease Social History Social History Smoking status: Never smoker Alcohol intake: never Living arrangements: with family Gender identity (if verbalized by the patient): Male Spiritual care concerns: No Anes - Eval Final PreProcedure Day of Procedure 09/11/20 10:33 Patient weight: overweight Heart: regular rate and rhythm Lungs: clear to auscultation and normal air movement Airway: Mallampati scale class II Neurological: alert and oriented Last oral intake: >/= 8 hours ASA classification: III Emergent: no Anesthetic plan: proceed Anesthesia type and monitoring: general GIVS and standard monitoring Informed Consent: The patient's anesthetic plan and its attendant risks and benefits were discussed with the patient/family/POA. Questions were solicited and answers provided to the satisfaction of the patient/family/POA.
[2020-09-12] VITALS (7 sets, daily range): BP systolic 107–146; BP diastolic 54–83; PULSE 45–84; RESP 14–16; TEMP 36.3–36.5; O2SAT 98–100
[2020-09-12] MEDS: LACTATED RINGERS 1,000 ML 30 ML IV CONT (11:43)
--- NOTE | 2020-09-12 11:47 | WPDHPUPDATE1 ---
History and Physical Update Update Date/Time: 09/12/20 11:47 History and Physical has been reviewed, including an updated exam of the patient. There are NO changes in the patient's condition. Risks, benefits, and alternatives have been discussed and questions answered. Patient agrees to proceed with procedure.
--- NOTE | 2020-09-12 12:21 | WPDHPUPDATE1 ---
History and Physical Update Update Date/Time: 09/12/20 12:21 History and Physical has been reviewed, including an updated exam of the patient. There are NO changes in the patient's condition. Risks, benefits, and alternatives have been discussed and questions answered. Patient agrees to proceed with procedure. Proceed with space oar
[2020-09-12] MEDS: ceFAZolin 2 GM/D5W 50 ML 2 GM/50 ML BAG IVPB (13:02)
--- NOTE | 2020-09-12 13:22 | PM.PROC ---
Procedure Note - Detailed Date of procedure: 09/12/20 Pre-op diagnosis: prostate CA Post-op diagnosis: same Procedure performed: TRUS with Space Oar placement. Description of procedure: Patient is taken to the operative suite and correctly identified. Once anesthesia was obtained was placed in dorsal lithotomy position and prepped and draped usual sterile fashion. Transrectal ultrasound was then performed. This prostate was viewed in both sagittal and transverse views. Spinal needle was inserted visualized in both planes. 1 cc of normal saline was then injected to confirm its placement. The needle was aspirated without any evidence of blood coming. The Pre prepared Space oar mixture was then injected. There was good separation of the prostate from the rectum. There was no evidence of any injury to the rectum. Patient is taken recovery room stable condition. Anesthesia: GLMA Surgeon: Fady Terrazas MD Drains: No Packing: No Pathology: none sent Complications: No immediate complications Condition: stable Disposition: PACU
[2020-09-12] MEDS: oxyCODONE HCL (*CRX) 5 MG TAB IR PO (14:43)
== END 2020-09-12 15:00 | disposition home or self-care (01) ==
PROVIDERS: PCP Internal Medicine; Visit Provider Urology
PROC: (CPT 55874; principal; 2020-09-12 13:00)
DX: C61 Malignant neoplasm of prostate (principal); I10 Essential (primary) hypertension; E78.00 Pure hypercholesterolemia, unspecified; K21.9 Gastro-esophageal reflux disease without esophagitis; I69.951 Hemiplegia and hemiparesis following unspecified cerebrovascular disease affecting right dominant side; K27.9 Peptic ulcer, site unspecified, unspecified as acute or chronic, without hemorrhage or perforation; Z79.02 Long term (current) use of antithrombotics/antiplatelets
CPT/HCPCS: 55874; A9270; C1889; J0690; J1100; J2405; J2704; J7120

== ENCOUNTER 2020-09-19 08:43 | Outpatient (CLI) | payer MEDICARE, SELFPAY ==
--- NOTE | ~2020-09-19 | MR_ITS ---
EXAMINATION: MR pelvis wo con INDICATION: Malignant neoplasm of the prostate TECHNIQUE: Coronal SSFSE ARC, Axial and Coronal 2D FIESTA FatSat, Axial T2 FS, Axial SSFSE BH ARC, Ax ial 3D DualEcho BH, Axial SSFSE-IR Deniz, Axial DWI b=600, Axial LAVA ARC, WATER: Cor LAVA-FLEX COMPARISON: None available CONTRAST: None FINDINGS: The prostate is enlarged. There is a 3.4 x 1.4 cm fluid collection positioned between the r ectum and prostate, likely related to prostate biopsy. T1 and T2 hyperintense foci of the prostate al so likely reflects prostate biopsy. There appears to be hemorrhage in the left seminal vesicles. Ther e are no pathologically enlarged pelvic lymph nodes. No dilated loops of bowel are evident. There is moderate lumbar spondylosis. A fat-containing umbilical hernia is noted. IMPRESSION: 1. Enlarged prostate with postbiopsy changes in the adjacent to the prostate. No evidence of metastat ic disease. Reviewed, dictated and finalized at location A. ALT RAKER IMPRESSION: 1. Enlarged prostate with postbiopsy changes in the adjacent to the prostate. N o evidence of metastatic disease.
== END 2020-09-19 08:44 | disposition home or self-care (01) ==
PROVIDERS: PCP Internal Medicine
DX: C61 Malignant neoplasm of prostate (principal)
CPT/HCPCS: 72195

== ENCOUNTER 2021-03-30 14:04 | Outpatient (CLI) | payer MEDICARE, SELFPAY ==
[2021-03-30 15:10] LABS: Prostate Specific Antigen 2.5 ng/mL (< OR = 4.0)
== END 2021-03-30 14:05 | disposition home or self-care (01) ==
LOC: CHSLAB 14:08
PROVIDERS: PCP Internal Medicine; Visit Provider Internal Medicine
DX: C61 Malignant neoplasm of prostate (principal)
CPT/HCPCS: 36415; 84153; G0103

== ENCOUNTER 2021-06-21 13:53 | Outpatient (CLI) | payer MEDICARE, SELFPAY ==
[2021-06-21 14:06] LABS: Basophils Absolute Auto 0.05 K/mm3 (0.00-0.10); Basophils Percent Auto 0.8 % (0.0-1.0); Eosinophils Absolute Auto 0.26 K/mm3 (0.02-0.50); Eosinophils Percent Auto 4.1 % (1.0-6.0); Hematocrit 47.7 % (37.0-46.0); Hemoglobin 16.1 g/dL (12.4-15.3); Immature Granulocyte Absolute 0.02 K/mm3 (0.00-0.00); Immature Granulocyte Percent A 0.3 % (0.0-0.0); Lymphocytes Absolute Auto 1.25 K/mm3 (1.10-4.50); Lymphocytes Percent Auto 19.8 % (18.0-42.0); Mean Corpuscular HGB Conc 33.8 g/dL (32.0-36.0); Mean Corpuscular Hemoglobin 29.7 pg (27.0-31.0); Mean Platelet Volume 9.8 fl (8.7-11.0); Monocytes Absolute Auto 0.51 K/mm3 (0.10-0.90); Monocytes Percent Auto 8.1 % (2.0-11.0); Neutrophils Absolute Auto 4.2 K/mm3 (1.7-7.2); Neutrophils Percent Auto 66.9 % (50.0-70.0); Platelet Count Result 234 K/mm3 (150-420); Red Blood Count 5.42 M/mm3 (4.70-6.10); Red Cell Distribution Width 12.6 % (11.6-14.4); White Blood Count 6.3 K/mm3 (4.8-10.8)
[2021-06-21 15:50] LABS: Alanine Aminotransferase 46 U/L (16-63); Albumin Level 3.8 g/dL (3.4-5.0); Alkaline Phosphatase 77 U/L (46-116); Anion Gap 7 mmol/L (8-16); Aspartate Amino Transferase 22 U/L (15-37); Bilirubin,Total 1.6 mg/dL (0.00-1.00); Blood Urea Nitrogen 20 mg/dL (7-18); Calcium 8.9 mg/dL (8.5-10.1); Carbon Dioxide 33 mmol/L (21-32); Chloride 104 mmol/L (98-108); Cholesterol 116 mg/dL (0-200); Estimated Glomerular Filt Rate > 60; Glucose 93 mg/dL (70-99); HDL Direct 43 mg/dL (40-60); LDL Cholesterol Calculated 61 mg/dL (<130); Osmolality Calculated 300 mOsm/kg (285-295); Sodium 144 mmol/L (136-145); Total Protein 6.8 g/dL (6.4-8.2); Triglycerides 61 mg/dL (0-150)
== END 2021-06-21 13:54 | disposition home or self-care (01) ==
LOC: CHSLAB 13:56
PROVIDERS: PCP Internal Medicine; Visit Provider Internal Medicine
DX: E78.00 Pure hypercholesterolemia, unspecified (principal); I10 Essential (primary) hypertension
CPT/HCPCS: 36415; 80053; 80061; 85025

== ENCOUNTER 2022-05-10 11:59 | Outpatient (CLI) | payer MEDICARE, SELFPAY ==
[2022-05-10 12:16] LABS: Basophils Absolute Auto 0.05 K/mm3 (0.00-0.10); Basophils Percent Auto 0.6 % (0.0-1.0); Eosinophils Absolute Auto 0.13 K/mm3 (0.02-0.50); Eosinophils Percent Auto 1.6 % (1.0-6.0); Hematocrit 45.9 % (37.0-46.0); Hemoglobin 15.2 g/dL (12.4-15.3); Immature Granulocyte Absolute 0.03 K/mm3 (0.00-0.00); Immature Granulocyte Percent A 0.4 % (0.0-0.0); Lymphocytes Absolute Auto 1.56 K/mm3 (1.10-4.50); Lymphocytes Percent Auto 19.6 % (18.0-42.0); Mean Corpuscular HGB Conc 33.1 g/dL (32.0-36.0); Mean Corpuscular Hemoglobin 29.1 pg (27.0-31.0); Mean Corpuscular Volume 87.8 fL (78.0-102.0); Mean Platelet Volume 9.6 fl (8.7-11.0); Monocytes Absolute Auto 0.57 K/mm3 (0.10-0.90); Monocytes Percent Auto 7.2 % (2.0-11.0); Neutrophils Absolute Auto 5.6 K/mm3 (1.7-7.2); Neutrophils Percent Auto 70.6 % (50.0-70.0); Platelet Count Result 351 K/mm3 (150-420); Red Blood Count 5.23 M/mm3 (4.70-6.10); Red Cell Distribution Width 13.3 % (11.6-14.4)
[2022-05-10 12:23] LABS: Appearance Urine Clear (Clear); Bilirubin Urine Negative (Negative); Color Urine Light Yellow (Yellow); Glucose Urine UA Negative (Negative); Ketones Urine Negative (Negative); Leukocyte Esterase Ur Negative (Negative); Nitrate Urine Negative (Negative); Protein Urine Negative (Negative); Specific Grav Ur 1.025 (1.010-1.020); Urobilinogen Urine 0.2 mg/dL (0.2-1.0)
[2022-05-10 12:27] LABS: Add Urine Microscopic? YES; Blood Urine Trace-lysed (Negative); RBC Urine None seen /hpf (0-2); Squamous Epithelial Cell Urine Rare /hpf (Few); WBC Urine None seen /hpf (0-3)
[2022-05-10 12:28] LABS: Bacteria Urine None seen /hpf
[2022-05-10 12:49] LABS: Alanine Aminotransferase 57 U/L (16-63); Albumin Level 3.3 g/dL (3.4-5.0); Alkaline Phosphatase 155 U/L (46-116); Anion Gap 10 mmol/L (8-16); Aspartate Amino Transferase 21 U/L (15-37); Bilirubin,Total 1.4 mg/dL (0.00-1.00); Blood Urea Nitrogen 17 mg/dL (7-18); Calcium 8.7 mg/dL (8.5-10.1); Carbon Dioxide 28 mmol/L (21-32); Chloride 103 mmol/L (98-108); Estimated Glomerular Filt Rate > 60; Glucose 111 mg/dL (70-99); Osmolality Calculated 294 mOsm/kg (285-295); Potassium 3.8 mmol/L (3.5-5.1); Sodium 141 mmol/L (136-145)
== END 2022-05-10 12:00 | disposition home or self-care (01) ==
LOC: CHSLAB 12:03
PROVIDERS: PCP Internal Medicine; Visit Provider Internal Medicine
DX: R10.9 Unspecified abdominal pain (principal); R68.83 Chills (without fever); Z85.46 Personal history of malignant neoplasm of prostate
CPT/HCPCS: 36415; 80053; 81001; 84153; 85025; 87086

== ENCOUNTER 2023-02-05 09:46 | Outpatient (CLI) | payer MEDICARE, SELFPAY ==
[2023-02-05 12:38] LABS: Prostate Specific Antigen 0.7 ng/mL (< OR = 4.0)
== END 2023-02-05 09:47 | disposition home or self-care (01) ==
PROVIDERS: PCP Internal Medicine; Visit Provider Urology
DX: N40.1 Benign prostatic hyperplasia with lower urinary tract symptoms (principal)
CPT/HCPCS: 36415; 84153

== ENCOUNTER 2023-09-04 13:01 | Outpatient (CLI) | payer MEDICARE, SELFPAY ==
[2023-09-04 14:07] LABS: Prostate Specific Antigen 0.4 ng/mL (< OR = 4.0)
== END 2023-09-04 13:02 | disposition home or self-care (01) ==
LOC: CHSLAB 13:04
PROVIDERS: PCP Internal Medicine; Visit Provider Urology
DX: C61 Malignant neoplasm of prostate (principal)
CPT/HCPCS: 36415; 84153

== ENCOUNTER 2024-03-12 10:04 | Outpatient (CLI) | payer MEDICARE, SELFPAY ==
[2024-03-12 12:09] LABS: Prostate Specific Antigen 0.6 ng/mL (< OR = 4.0)
== END 2024-03-12 10:05 | disposition home or self-care (01) ==
LOC: CHSLAB 10:07
PROVIDERS: PCP Internal Medicine; Visit Provider Urology
DX: C61 Malignant neoplasm of prostate (principal)
CPT/HCPCS: 36415; 84153

== ENCOUNTER 2024-05-31 14:28 | Emergency (ER) | payer MEDICARE, SELFPAY ==
--- NOTE | ~2024-05-31 | XR_ITS ---
XR tibia fibula RT 2V Ordering provider: Agustin Greene MD History: . fall . Comparison: None. FINDINGS: BONES: No acute fracture or dislocation. Bony irregularity with possible ossification in the adjacent soft tissues seen in the distal tibial area. Follow-up advised. JOINT SPACES: Normal. SOFT TISSUES: Normal. IMPRESSION: No acute osseous abnormality right leg. Reviewed, dictated and finalized at location A.
[2024-05-31 14:32] VITALS: BP 140/75; PULSE 84; RESP 18; TEMP 36.5; O2SAT 98
--- NOTE | 2024-05-31 14:32 | ED.EXTPRO ---
HPI - Extremity Problem General Chief complaint: Extremity Problem,Nontraumatic Stated complaint: leg weeping Time Seen by Provider: 05/31/24 14:32 Source: patient History of Present Illness HPI Narrative: 74 years old white male came to the emergency room complaining of pain, swelling, redness and drainage from the skin of the right lower leg. Started few days ago. Patient is telling me that 1 week ago he was climbing a trailer and slid on it causing injury to the right lower leg. He denies other injuries. Patient not diabetic, and denies any fever, chills, nausea, vomiting. Patient did not seen a doctor, unknown last tetanus. Related Data Home Medications Medication Instructions Recorded Confirmed atorvastatin 40 mg tablet 40 mg PO DAILY 10/11/19 05/31/24 clopidogrel 75 mg tablet 75 mg PO DAILY 10/11/19 05/31/24 duloxetine 30 mg capsule,delayed 30 mg PO BID 10/11/19 05/31/24 release hydrochlorothiazide 25 mg tablet 25 mg PO DAILY 10/11/19 05/31/24 irbesartan 75 mg tablet 75 mg PO DAILY 10/11/19 05/31/24 oxybutynin chloride 5 mg 5 mg PO DAILY 05/31/24 05/31/24 tablet,extended release 24 hr tamsulosin 0.4 mg capsule 0.4 mg PO DAILY 05/31/24 05/31/24 Allergies Allergy/AdvReac Type Severity Reaction Status Date / Time lisinopril Allergy Mild Itching Verified 05/31/24 14:35 Review of Systems Review of Systems: All systems reviewed & are unremarkable except as noted in HPI and below PMFSH Past Medical History Medical History Acute blood loss anemia BPH (benign prostatic hyperplasia) CVA, old, 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 RIGHT SIDED WEAKNESS AND RIGHT SLDR PAIN Gastroesophageal reflux disease Hypercholesterolemia Hypertension Prostate CA PUD (peptic ulcer disease) NON BLEEDING GASTRIC 06/2019 Surgical History Surgical History History of tonsillectomy Family History Family History Mother Heart disease Father Heart disease Social History Social History Smoking status: Never smoker Alcohol intake: never Living arrangements: with family Gender identity (if verbalized by the patient): Male Spiritual care concerns: No Exam Narrative: General appearance: Well-developed, well-nourished Skin: Normal color Head: Normocephalic, nontraumatic Eyes: Clear conjunctiva ENT: Oropharynx normal, ears normal, nose normal Neck: Supple, nontender Chest and respiratory: Airway patent, no respiratory distress, no accessory muscle use Heart: Regular rate/rhythm Abdomen: Soft, nontender, no organomegaly, quiet bowel sounds Vascular: Normal peripheral pulses, normal capillary refill. Musculoskeletal: Right lower leg showed 2+ edema compared to 1+ edema of the left leg, diffuse erythema, slightly warm, abrasion vertical at the front of the leg leaking clear yellowish discharge, diffuse tenderness anteriorly, ecchymosis at the back of the right knee, ecchymosis at the dorsal side of the toes and at the palmar side of the foot. Black spots 3 x 4 cm distal to the knee anteriorly and proximal to the ankle laterally looks like healing scab Neurologic: Alert and oriented ?3, MILK ROUTE SUPERVISOR is normal as tested, no gross motor deficit Course Vital Signs Vital signs: Vital Signs Oxygen Delivery Room Air 05/31/24 14:28 Temperature 36.5 C 05/31/24 14:32 Pulse Rate 84 05/31/24 14:32 Respiratory Rate 18 05/31/24 14:32 Blood Pressure 140/75 05/31/24 14:32 Pulse Oximetry 98 05/31/24 14:32 Oxygen D
[2024-05-31] MEDS: TETANUS,DIPHTHERIA,AC PERTUSSIS ADULT 0.5 ML (ADACEL) IM (14:53)
[2024-05-31] MEDS: VANCOMYCIN 1,250 MG/NS 250 ML 1,250 MG/250 ML BAG 200 MG IVPB (15:13)
[2024-05-31 15:16] LABS: Basophils Absolute Auto 0.03 K/mm3 (0.00-0.10); Basophils Percent Auto 0.3 % (0.0-1.0); Eosinophils Absolute Auto 0.14 K/mm3 (0.02-0.50); Eosinophils Percent Auto 1.3 % (1.0-6.0); Hematocrit 45.8 % (37.0-46.0); Hemoglobin 15.5 g/dL (12.4-15.3); Immature Granulocyte Absolute 0.03 K/mm3 (0.00-0.00); Immature Granulocyte Percent A 0.3 % (0.0-0.0); Lymphocytes Absolute Auto 1.34 K/mm3 (1.10-4.50); Lymphocytes Percent Auto 12.7 % (18.0-42.0); Mean Corpuscular HGB Conc 33.8 g/dL (32-36); Mean Corpuscular Hemoglobin 29.4 pg (27.0-31.0); Mean Corpuscular Volume 86.9 fL (78.0-102.0); Mean Platelet Volume 10.4 fl (8.7-11.0); Monocytes Absolute Auto 0.86 K/mm3 (0.10-0.90); Monocytes Percent Auto 8.2 % (2.0-11.0); Neutrophils Absolute Auto 8.11 K/mm3 (1.70-7.20); Neutrophils Percent Auto 77.2 % (50.0-70.0); Platelet Count Result 235 K/mm3 (150-420); Red Blood Count 5.27 M/mm3 (4.70-6.10); Red Cell Distribution Width 12.9 % (11.6-14.4); White Blood Count 10.5 K/mm3 (4.8-10.8)
[2024-05-31 15:33] LABS: Alanine Aminotransferase 27 U/L (16-63); Alkaline Phosphatase 103 U/L (46-116); Anion Gap 5 mmol/L (4-12); Aspartate Amino Transferase 17 U/L (15-37); Bilirubin,Total 4.6 mg/dL (0.00-1.00); Blood Urea Nitrogen 18 mg/dL (7-18); Calcium 8.5 mg/dL (8.5-10.1); Carbon Dioxide 33 mmol/L (21-32); Chloride 101 mmol/L (98-108); Estimated CRCL calculation 43 ml/min; Estimated Glomerular Filt Rate 56; Glucose 135 mg/dL (70-99); Osmolality Calculated 291 mOsm/kg (285-295); Potassium 3.7 mmol/L (3.5-5.1); Sodium 139 mmol/L (136-145); Total Protein 6.7 g/dL (6.4-8.2)
--- NOTE | 2024-05-31 15:38 | PC.NURSE ---
PT IS LYING ON STRETCHER WITH IV MEDICATION INFUSING WITHOUT DIFFICULTY. PT IS AWAITING RESULTS AT THIS TIME. PT DENIES ANY NEEDS OR COMPLAINTS. IS AT BEDSIDE. WOUND CLEANING AND DRESSING PROVIDED TO [facility] ON RLE. PT TOLERATED WELL. WILL CONTINUE TO MONITOR.
[2024-05-31 15:39] LABS: Albumin Level 3.5 g/dL (3.4-5.0)
[2024-05-31 16:35] VITALS: BP 118/69; PULSE 60; RESP 18; TEMP 36.7; O2SAT 98
--- NOTE | 2024-06-06 13:40 | PC.NURSE ---
FINAL BLOOD CULTURE NO GROWTH AFTER 5 DAYS
== END 2024-05-31 16:35 | disposition home or self-care (01) ==
PROVIDERS: Emergency Provider Emergency Medicine; PCP Internal Medicine
DX: S80.811A Abrasion, right lower leg, initial encounter (principal); L03.115 Cellulitis of right lower limb; I10 Essential (primary) hypertension; Z79.899 Other long term (current) drug therapy; Z85.46 Personal history of malignant neoplasm of prostate; Z23 Encounter for immunization; W19.XXXA Unspecified fall, initial encounter
CPT/HCPCS: 36415; 73590; 80053; 85025; 87040; 90471; 90715; 96365; 99284; J3370

== ENCOUNTER 2024-06-21 09:38 | Outpatient (CLI) | payer MEDICARE, SELFPAY ==
[2024-06-21 10:25] LABS: Basophils Absolute Auto 0.08 K/mm3 (0.00-0.10); Eosinophils Percent Auto 2.5 % (1.0-6.0); Hematocrit 48.9 % (37.0-46.0); Immature Granulocyte Absolute 0.03 K/mm3 (0.00-0.00); Immature Granulocyte Percent A 0.4 % (0.0-0.0); Lymphocytes Percent Auto 25.4 % (18.0-42.0); Mean Corpuscular HGB Conc 32.7 g/dL (32-36); Mean Corpuscular Hemoglobin 28.7 pg (27.0-31.0); Mean Corpuscular Volume 87.6 fL (78.0-102.0); Mean Platelet Volume 9.9 fl (8.7-11.0); Monocytes Absolute Auto 0.63 K/mm3 (0.10-0.90); Neutrophils Absolute Auto 4.93 K/mm3 (1.70-7.20); Neutrophils Percent Auto 62.7 % (50.0-70.0); Platelet Count Result 344 K/mm3 (150-420); Red Blood Count 5.58 M/mm3 (4.70-6.10); Red Cell Distribution Width 13.3 % (11.6-14.4); White Blood Count 7.9 K/mm3 (4.8-10.8)
[2024-06-21 10:31] LABS: Add Urine Microscopic? NO; Appearance Urine Clear (Clear); Bilirubin Urine Negative (Negative); Blood Urine Negative (Negative); Color Urine Light Yellow (Yellow); Glucose Urine UA Negative (Negative); Ketones Urine Negative (Negative); Leukocyte Esterase Ur Negative (Negative); Nitrate Urine Negative (Negative); Protein Urine Negative (Negative); Urobilinogen Urine 0.2 mg/dL (0.2-1.0)
[2024-06-21 11:58] LABS: Alanine Aminotransferase 74 U/L (16-63); Albumin Level 3.7 g/dL (3.4-5.0); Alkaline Phosphatase 96 U/L (46-116); Anion Gap 4 mmol/L (4-12); Aspartate Amino Transferase 32 U/L (15-37); Blood Urea Nitrogen 20 mg/dL (7-18); Calcium 8.7 mg/dL (8.5-10.1); Carbon Dioxide 34 mmol/L (21-32); Chloride 102 mmol/L (98-108); Cholesterol 130 mg/dL (0-200); Estimated Glomerular Filt Rate > 60; Glucose 103 mg/dL (70-99); HDL Direct 41 mg/dL (40-60); LDL Cholesterol Calculated 65 mg/dL (<130); Osmolality Calculated 292 mOsm/kg (285-295); Potassium 4.5 mmol/L (3.5-5.1); Prostate Specific Antigen 0.5 ng/mL (< OR = 4.0); Sodium 140 mmol/L (136-145); Thyroid Stimulating Hormone 3.32 uIU/mL (0.36-3.74); Total Protein 7.5 g/dL (6.4-8.2); Triglycerides 122 mg/dL (0-150)
[2024-06-21 12:08] LABS: CRP < 0.5 mg/dL (0.0-0.9)
== END 2024-06-21 09:39 | disposition home or self-care (01) ==
LOC: CHSLAB 09:40
PROVIDERS: PCP Internal Medicine; Visit Provider Internal Medicine
DX: L03.115 Cellulitis of right lower limb (principal); R73.9 Hyperglycemia, unspecified; C61 Malignant neoplasm of prostate; I10 Essential (primary) hypertension; E78.00 Pure hypercholesterolemia, unspecified
CPT/HCPCS: 36415; 80053; 80061; 81003; 84153; 84443; 85025; 86140

== ENCOUNTER 2024-10-22 15:54 | Outpatient (CLI) | payer MEDICARE, SELFPAY ==
--- NOTE | ~2024-10-22 | XR_ITS ---
EXAMINATION: XR chest 2V 10/22/2024 16:20 INDICATION: Cough and congestion. Wheezing. PROCEDURE: 2 view chest COMPARISON: Comparison to multiple prior studies sequentially, with oldest reviewed study dated 06/04. FINDINGS: The lungs are clear. The cardiomediastinal silhouette is within normal limits. There are no pleural effusions. There is no pneumothorax suspected. IMPRESSION: 1: NO ACUTE CARDIOPULMONARY DISEASE. Reviewed, dictated and finalized at location B. MOTIVE DETAILER
--- OUTSIDE RECORDS SUMMARY | 2024-10-22 15:59 | XMS_ITS | Encounter Summary ---
Author Organization [facility] Address [address] [place] [address] Care Team Providers Care Mobile Designer Name Role Phone Deshaun Mendoza MD Primary Care Provider [phone] Arvin Armando MD Unavailable Brook Samano Unavailable [phone] Encounter Details Date Type Department Care Team (Latest Contact Info) Description 10/21/2024 Travel Social History Tobacco Use Types Packs/Day Years Used Date Smoking Tobacco: Never Smokeless Tobacco: Never Sex and Gender Information Value Date Recorded Sex Assigned at Male 10/04/2024 2:50 PM PRODUCTION ASSEMBLY SUPERVISOR Legal Sex Male 10:41 PM PRODUCTION ASSEMBLY SUPERVISOR Gender Identity Male 07/12/2024 8:13 AM PRODUCTION ASSEMBLY SUPERVISOR Sexual Orientation Not on file documented as of this encounter Plan of Treatment Not on file documented as of this encounter Visit Diagnoses Not on filedocumented in this encounter Care Teams Mobile Designer Relationship Specialty Start Date End Date Deshaun Mendoza MD [address] [place] [id number] PCP - General INTERNAL MEDICINE 07/07/24 Arvin Armando MD [address] [place] [address] Consulting Physician INTERNAL MEDICINE 07/15/24 5 Brook Samano FNP [address] [place] [address] Nurse Practitioner Nurse Practitioner Family 07/15/24 documented as of this encounter
--- OUTSIDE RECORDS SUMMARY | 2024-10-22 15:59 | XMS_ITS | Data Portability ---
Author Organization [facility] [employer], Main Office Address [address] [place] [address] Care Team Providers Care Heater Worker Name Role Phone NATHAN BILLINGS Primary Care Provider NATHAN BILLINGS Referring Provider Assessment Encounter Date Assessment Date Assessment LastModified by Organization Details LastModified Time 09/17/2023 09/17/2023 HPI: 73-year-old male came in today for evaluation of his left knee pain. Been having symptoms for about 3 months in the knee. He is a very active individual around his house. He is retired but he works outside on a regular basis at his house. He gets up and down off tractor doing different activities. Patient states that the pain came on spontaneously about 3 months ago. He does not recall any injury or trauma. He has not slowed down tried to rest it up until this point. Pain seems to be getting worse. Most pain is over the medial aspect of the knee. Patient is on Plavix and therefore not a candidate for anti-inflammatori es. He did write down that he takes occasional Advil and I have warned him about this. Patient has a past medical history of having arthroscopy to the left knee about [address] Fregoso physical exam: 73-year-old male he is 5 ft 6 192 lb BMI is 30.5. He has mild effusion in the left knee. Range of motion is from 3-135 degrees. He has some mild pain in the medial aspect of the knee at full flexion. Moderate tenderness to palpation of the mid medial joint line no lateral joint line tenderness. Minimal pain with patellofemoral grind. Hip range of motion is full without discomfort. Has trace edema in both lower extremities. He walks with moderate limp. After ChloraPrep was used on skin 20 mg Kenalog and 3 cc of 0.5% ropivacaine was injected into the left knee. Risk of infection discussed. Impression: 73-year-old male has medial compartment osteoarthritis the left knee. With his activity level most likely has aggravated arthritis with something propped 3 months ago. He is not having improvement of his symptoms. Again he is not a candidate for anti-inflammatori es because he is on Plavix. Talked about cortisone injection which he would like to proceed with today. We discussed that he can repeat these often as every 3 months. Did recommend that he limit his activities for next several days the cortisone do his job. Talked about use Tylenol and max dosing for that. Make an appointment back month see how the shot worked for him. If he is doing very well he can call and cancel. 30 minutes was spent in treatment patient than half this [id number] conversation alanna Not available 09/17/2023 10:04:05 Plan of Treatment Reminders Order Date Submit Date Provider Last Modified By Organization Details Last Modified Time Details Appointments None recorded. Lab None recorded. Referral None recorded. Procedures injection/a spiration joint/bursa (PROC) - in office procedure, administere d by provider 2023 024 In-Office Order, Internal Use Only DO Not Attach Compendium DO Not Attach Compendium, Do Not Delete/merge, [id number] 09:51:05 Surgeries None recorded. Imaging XR, knee 2023 024 [email or web address] [facility] [place], [facility], [place], [address], 4 07:35:20 Medication Orders Kenalog 10 mg/mL suspension for injection 2023 024 [email or web address] [id number], [address] [place], [address], 4 07:35:20 ropivacaine (PF) 5 mg/mL (0.5 %) injection solution 2023 024 [email or web address] [id number], [address] [place], [address], 4 07:35:20 Patient TargetsNo targets recorded. Patient InstructionsNo instructions recorded. Reason for Referral None Reported. Results Created Date Observation Date Name Description Value Unit Range Abnormal Flag Note LastModifiedBy Organization Detail LastModifiedTime 09/17/19 24 XR, knee No observ ation record ed. [email or web address] [facility] [place] [address], [place], [address], 09/17/2023 10:00:47 Result Notes None recorded. Problems Name Problem SNOMED Code Status Onset Date Resolution Date Notes Provider Name and Address Organization Details Recorded Time Pain of left knee joint [id number] Active 2023 ROSITA Sorto, MD - [facility] 09:20:31 Problem Notes None recorded. Procedures Surgical History None recorded. Imaging Results Imaging Date Name Status LastModified by Organiz ation Details LastModified Time 09/17/2023 XR, knee completed [email or web address] [place] [address], [place], [address], 09/17/2023 10:00:47 Procedure Notes None recorded. Medical Equipment None Reported. Allergies No known drug allergies Medications Name Sig Start Date Stop Date Status Note LastModified by Organization Details LastModified Time atorvastati n 40 mg tablet TAKE 1 TABLET BY MOUTH EVERYDAY AT BEDTIME active Not Available Not Available No t Available clopidogrel 75 mg tablet TAKE 1 TABLET BY MOUTH EVERY DAY active Not Available Not Available No t Available tamsulosin 0.4 mg capsule TAKE 1 CAPSULE BY MOUTH EVERY DAY NEEDED active Not Available Not Available No t Available Kenalog 10 mg/mL suspension for injection in office 2023 active [facility]: [phone] Not Available Not Available Not Available pantoprazol e 40 mg tablet,cristal yed release TAKE 1 TABLET BY MOUTH EVERY DAY active Not Available Not Available No t Available oxybutynin chloride ER 5 mg tablet,exte nded release 24 hr TAKE 1 TABLET BY MOUTH EVERY DAY active Not Available Not Available No t Available irbesartan 75 mg tablet TAKE 1 TABLET BY MOUTH EVERY DAY active Not Available Not Available No t Available hydrochloro thiazide 25 mg tablet TAKE 1 TABLET BY MOUTH EVERY DAY active Not Available Not Available No t Available fluoxetine 20 mg capsule TAKE 1 CAPSULE BY MOUTH EVERY DAY IN THE MORNING 09/17 completed Not Available Not Available Not Available duloxetine 60 mg capsule,del ayed release TAKE 1 CAPSULE BY MOUTH TWICE A DAY 09/17 completed Not Available Not Available Not Available ropivacaine (PF) 5 mg/mL (0.5 %) injection solution in office 2023 active Not Available Not Available Not Avai lable Vitals Date Recorded Body height Body mass index (BMI) Body weight Provider Name and Address Organization Details Last Updated DateTime 09/17/2023 168.91 cm 30.5 kg/m2 41804.74 g ROSITA Sorto [facility] [facility] 09/17/2023 09:23:58 Social History Question Answer Notes LastModified by Organizat ion Details LastModified Time Tobacco Smoking Status Never Smoker ROSITA Sorto null [facility] [employer] [facility] 09/17/2023 09:19:04 What Is Your Level Of Alcohol Consumption? None [email or web address] Information not available 09/17/2023 Sex: Unknown Functional Status None recorded. Mental Status None recorded. Family History Nothing Reported. Medical History Condition Response CANCER: SPECIFY Y URINARY/BLADDER/KIDNEY PROBLEMS Y HYPERTENSION Y STROKE/TIA Y Past Encounters Encounter ID Performer Location Encounter Start Date Encounter Closed Date Diagnosis/Indication Diagnosis SNOMED-CT Code Diagnosis ICD10 Code Diagnosis Note [id number] KEYLA Booker [facility] [place] [address] [place] [address] 09/17/2023 08:53:13 09/17/2023 10:05:29 Pain of left knee joint [id number] 15325 M25.562 Health Concerns Section Related Observation LastModified by Organization Detai ls LastModified Time None Recorded Concern Status LastModified by Organization Details LastModified Time None Recorded Advance Directives Directive None Recorded Payers Encounter Date Sequence Insurance Name Policy Number Policy Andrews Covered Member ID Andrews Member ID Guarantor Name 09/17/2023 1 [place] Chinmay Julian [id number] Chinmay Julian 09/17/2023 2 [employer] SU[employer]LEMENTAL - [employer] (MEDICARE SUPPLEMENT) Chinmay Julian [id number] Chinmay Julian
--- OUTSIDE RECORDS SUMMARY | 2024-10-22 15:59 | XMS_ITS | Continuity of Care Document ---
Author Name [facility] Organization [facility] Care Team Providers Care Headlight Adjuster Name Role Phone [facility] Unavailable Unavailable Encounters Combined list of: 1) Encounters from Department of Veterans Affairs facilities going backup to the last 18 months, not all VA inpatient encounters are included; 2) Encounters from the Department of Defense facilities going backup to 280 months. Location Location Details Encounter Type Encounter Number Reason For Visit Attending Provider ADM Date DC Date Status Disposition Source [facility] Outpatient Encounter [id number] 07/22 [facility]
--- OUTSIDE RECORDS SUMMARY | 2024-10-22 15:59 | XMS_ITS | Encounter Summary ---
Author Organization [facility] Address [address] [place] [address] Care Team Providers Care Physics Faculty Member Name Role Phone Deshaun Mendoza MD Primary Care Provider [phone] Arvin Armando MD Unavailable Brook Samano AUTOMATIC PAINT SPRAYER OPERATOR Unavailable [phone] Encounter Details Date Type Department Care Team (Late st Contact Info) Description 10/21/2024 8:00 AM DISTRIBUTOR SALES CONSULTANT Hospital Encounter [facility] [address] [place] [address] Brook Samano, [facility] [address] [place] [address] Social History Tobacco Use Types Packs/Day Years Used Date Smoking Tobacco: Never Smokeless Tobacco: Never Sex and Gender Information Value Date Recorded Sex Assigned at Male 10/04/2024 2:50 PM DISTRIBUTOR SALES CONSULTANT Legal Sex Male 10:41 PM DISTRIBUTOR SALES CONSULTANT Gender Identity Male 07/12/2024 8:13 AM DISTRIBUTOR SALES CONSULTANT Sexual Orientation Not on file documented as of this encounter Plan of Treatment Not on file documented as of this encounter Visit Diagnoses Not on filedocumented in this encounter Care Teams Physics Faculty Member Relationship Specialty Start Date End Date Deshaun Mendoza MD [address] [place] [id number] PCP - General INTERNAL MEDICINE 07/07/24 Arvin Armando MD [address] [place] [address] Consulting Physician INTERNAL MEDICINE 07/15/24 5 Brook Samano, AUTOMATIC PAINT SPRAYER OPERATOR [address] [place] [address] [place] [address] Nurse Practitioner Nurse Practitioner Family 07/15/24 documented as of this encounter
--- OUTSIDE RECORDS SUMMARY | 2024-10-22 15:59 | XMS_ITS | Clinical Summary ---
Author Organization [facility] Address [address] [place] [address] Care Team Providers Care Ordnance Artificer Name Role Phone Deshaun Mendoza MD Primary Care Provider [phone] Arvin Armando MD Unavailable Brook Samano HEALTHCARE SOCIAL WORKER Unavailable Medications atorvastatin (LIPITOR) 40 MG tablet Take 1 tablet (40 mg total) by mouth nightly at bedtime. Active clopidogrel (PLAVIX) 75 MG tablet Take 1 tablet (75 mg total) by mouth daily. Active hydroCHLOROthiaz tal (HYDRODIURIL) 25 MG tablet Take 1 tablet (25 mg total) by mouth every morning. Active irbesartan (AVAPRO) 75 MG tablet Take 1 tablet (75 mg total) by mouth daily. Active pantoprazole EC (PROTONIX) 40 MG tablet Take 1 tablet (40 mg total) by mouth daily. Active tamsulosin (FLOMAX) 0.4 MG Cap Take 1 capsule (0.4 mg total) by mouth daily as needed. Active DULoxetine (CYMBALTA) 60 MG capsule Take 1 capsule (60 mg total) by mouth 2 (two) times daily. Active FLUoxetine (PROZAC) 20 MG capsule Take 1 capsule (20 mg total) by mouth daily. Active doxycycline monohydrate 100 MG capsule Take 1 capsule (100 mg total) by mouth 2 (two) times daily. Active levoFLOXacin (LEVAQUIN) 500 MG tablet Take 1 tablet (500 mg total) by mouth daily. 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 ([facility]/HCC [facility]/HCC) Encounters Date Type Department Care Team Description 10/21/2024 8:00 AM SALES TEACHER Hospital Encounter [facility] [address] [place] [address] Brook Samano, HEALTHCARE SOCIAL WORKER 10/21/2024 Travel 09/16/2024 7:54 AM SALES TEACHER - 09/16/2024 11:59 PM SALES TEACHER Hospital Encounter [facility] [address] [place] [address] Brook Samano, HEALTHCARE SOCIAL WORKER Discharge Disposition: Home or Self Care (Routine Discharge) 09/16/2024 Travel 09/09/2024 8:30 AM SALES TEACHER - 09/09/2024 11:59 PM SALES TEACHER Hospital Encounter [facility] [address] [place] [address] Brook Samano, HEALTHCARE SOCIAL WORKER Discharge Disposition: Home or Self Care (Routine Discharge) 09/09/2024 Travel 09/02/2024 7:56 AM SALES TEACHER - 09/02/2024 11:59 PM SALES TEACHER Hospital Encounter [facility] [address] [place] [address] Brook Samano, HEALTHCARE SOCIAL WORKER Discharge Disposition: Home or Self Care (Routine Discharge) 09/02/2024 Travel 08/26/2024 8:00 AM SALES TEACHER - 08/26/2024 11:59 PM SALES TEACHER Hospital Encounter [facility] [address] [place] [address] Brook Samano, HEALTHCARE SOCIAL WORKER Discharge Disposition: Home or Self Care (Routine Discharge) 08/26/2024 Travel 08/19/2024 8:00 AM SALES TEACHER - 08/19/2024 11:59 PM SALES TEACHER Hospital Encounter [facility] [address] [place] [address] Brook Samano, HEALTHCARE SOCIAL WORKER Discharge Disposition: Home or Self Care (Routine Discharge) 08/19/2024 Travel 08/12/2024 8:00 AM SALES TEACHER - 08/12/2024 11:59 PM SALES TEACHER Hospital Encounter [facility] [address] [place] [address] Brook Samano FNP Otter, Jessica N, BILLY Discharge Disposition: Home or Self Care (Routine Discharge) 08/12/2024 Travel 08/10/2024 1:30 PM SALES TEACHER Office Visit [facility] [address] [place] [address] Arvin Armando MD Wound 08/10/2024 Telephone [facility] [address] [place] [address] Arvin Armanod MD Follow Up Call (Carotid duplex with follow up appointment) 08/10/2024 Travel 08/09/2024 Telephone [facility] [address] [place] [address] Arvin Armando MD Appointment Reminder 08/04/2024 8:00 AM SALES TEACHER - 08/04/2024 11:59 PM SALES TEACHER Hospital Encounter [facility] [address] [place] [address] Brook Samano FNP Discharge Disposition: Home or Self Care (Routine Discharge) 08/04/2024 Travel 07/28/2024 7:58 AM SALES TEACHER - 07/28/2024 11:59 PM SALES TEACHER Hospital Encounter [facility] [address] [place] [address] Brook Samano FNP Discharge Disposition: Home or Self Care (Routine Discharge) 07/28/2024 Travel 07/26/2024 8:27 AM SALES TEACHER - 07/26/2024 11:59 PM SALES TEACHER Hospital Encounter [facility] [address] [place] [address] Brook Samano FNP Discharge Disposition: Home or Self Care (Routine Discharge) 07/26/2024 Travel from Last 3 Months Social History Tobacco Use Types Packs/Day Years Used Date Smoking Tobacco: Never Smokeless Tobacco: Never Tobacco Cessation:Counseling Given: Yes Sex and Gender Information Value Date Recorded Sex Assigned at Male 10/04/2024 2:50 PM SALES TEACHER Legal Sex Male 10:41 PM SALES TEACHER Gender Identity Male 07/12/2024 8:13 AM SALES TEACHER Sexual Orientation Not on file Last Filed Vital Signs Vital Sign Reading Time Taken Comments Blood Pressure 130/71 08/10/2024 1:40 PM SALES TEACHER Pulse 66 08/10/2024 1:40 PM SALES TEACHER Temperature - - Respiratory Rate 18 08/10/2024 1:40 PM SALES TEACHER Oxygen Saturation 95% 08/10/2024 1:40 PM SALES TEACHER Inhaled Oxygen Concentration - - Weight 84.6 kg (186 lb 6.4 oz) 08/10/2024 1:40 P M SALES TEACHER Height 172.7 cm (5' 8 ) 08/10/2024 1:40 PM SALES TEACHER Body Mass Index 28.34 08/10/2024 1:40 PM SALES TEACHER Plan of Treatment Health Maintenance Due Date Last Done Comments Hepatitis C 1966 Zoster Vaccines (1 of 2) 1998 Annual Medicare Wellness Visit 2013 Pneumococcal Vaccine: 65+ Ye ars (1 of 1 - PCV) 2013 RSV Immunization or 60+ Years (1 - 1-dose 75+ series) 2023 COVID-19 Vaccine ( - 2023-2 5 season) 2024 Influenza Adult (#1) 2024 DTaP, Tdap and Td Vaccines ( 2 - Td or Tdap) 05/31/2034 05/31/2024 Meningococcal B Vaccine Aged Out No l onger eligible based on patient's age to complete this topic Meningococcal Vaccine Aged Out No misa rodger eligible based on patient's age to complete this topic RSV Immunizations Under 20 Months Aged Out No longer eligible based on patient's age to complete this topic Procedures Procedure Name Priority Date/Time Associated Diagnosis Comments HC BODY FLUID CULTURE Routine 08/26/2024 8:20 AM SALES TEACHER 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 (CMS/HCC HHS/HCC) from Last 3 Months Results * CULTURE, WOUND, W/GRAM STAIN (08/26/2024 8:20 AM SALES TEACHER) SPEC DESCRIPTION LEG,RIGHT 08/26/2024 8:35 AM SALES TEACHER [facility] SPECIAL REQUESTS NO SPECIAL REQUEST 08/26/2024 8:35 AM SALES TEACHER [facility] GRAM STAIN RESULT RARE GRAM POSITIVE COCCI 08/26/2024 10:05 AM SALES TEACHER [facility] CULTURE RESULT FEW STAPHYLOCOCCU S AUREUS 08/28/2024 1:11 PM SALES TEACHER [facility] CULTURE RESULT FEW STAPHYLOCOCCU S, COAGULASE NEGATIVE 08/28/2024 1:11 PM SALES TEACHER [facility] STRUCTURE OF RIGHT LOWER LIMB / Unknown 08/26/2024 8:20 AM SALES TEACHER 08/26/2024 8:38 AM SALES TEACHER Narrative Organism Antibiotic Method Susceptibility Staphylococcus aureus CLINDAMYCIN VARGHESE (VITEK) Sensitive Staphylococcus aureus ERYTHROMYCIN VARGHESE (VITEK) Sensitive Staphylococcus aureus GENTAMICIN VARGHESE (VITEK) Sensitive Staphylococcus aureus OXACILLIN VARGHESE (VITEK) Sensitive Staphylococcus aureus PENICILLIN G VARGHESE (VITEK) Resistant Staphylococcus aureus RIFAMPIN VARGHESE (VITEK) Sensitive Staphylococcus aureus TRIMETH-SULFAMETH. VARGHESE (VITEK) Sensitive Staphylococcus aureus TETRACYCLINE VARGHESE (VITEK) Sensitive Staphylococcus aureus TIGECYCLINE VARGHESE (VITEK) Sensitive Staphylococcus aureus VANCOMYCIN VARGHESE (VITEK) Sensitive Brook DAOP MICROBIOLOGY - GENERAL ORDERAB LES Final Result [facility] [address] [place] [address], [id number] [facility] [address] [place] [address], from Last 3 Months Insurance MEDICARE [employer] Care Teams Ordnance Artificer Relationship Specialty Start Date End Date Deshaun Mendoza MD [address] [place] [address] PCP - General INTERNAL MEDICINE 07/07/24 Arvin Armando MD [address] [place] [address] Consulting Physician INTERNAL MEDICINE 07/15/24 5 Brook Samano FNP [address] [place] [address] Nurse Practitioner Nurse Practitioner Family 07/15/24
[2024-10-22 16:24] LABS: Hematocrit 55.1 % (37.0-46.0); Hemoglobin 17.9 g/dL (12.4-15.3); Mean Corpuscular HGB Conc 32.5 g/dL (32-36); Mean Corpuscular Volume 86.2 fL (78.0-102.0); Mean Platelet Volume 10.2 fl (8.7-11.0); Platelet Count Result 249 K/mm3 (150-420); Red Blood Count 6.39 M/mm3 (4.70-6.10); Red Cell Distribution Width 13.4 % (11.6-14.4); White Blood Count 10.9 K/mm3 (4.8-10.8)
[2024-10-22 17:13] LABS: Alanine Aminotransferase 29 U/L (16-63); Albumin Level 4.1 g/dL (3.4-5.0); Alkaline Phosphatase 78 U/L (46-116); Anion Gap 11 mmol/L (4-12); Aspartate Amino Transferase 22 U/L (15-37); Bilirubin,Total 2.6 mg/dL (0.00-1.00); Blood Urea Nitrogen 25 mg/dL (7-18); Calcium 9.4 mg/dL (8.5-10.1); Carbon Dioxide 30 mmol/L (21-32); Chloride 101 mmol/L (98-108); Cholesterol 157 mg/dL (0-200); Estimated Glomerular Filt Rate 51; Glucose 95 mg/dL (70-99); HDL Direct 47 mg/dL (40-60); LDL Cholesterol Calculated 67 mg/dL (<130); NT Pro B Type Natriuretic Pept 68 pg/mL (0-450); Osmolality Calculated 298 mOsm/kg (285-295); Potassium 3.7 mmol/L (3.5-5.1); Sodium 142 mmol/L (136-145); Total Protein 7.5 g/dL (6.4-8.2); Triglycerides 213 mg/dL (0-150)
== END 2024-10-22 15:55 | disposition home or self-care (01) ==
PROVIDERS: PCP Internal Medicine; Visit Provider Internal Medicine
DX: R05.9 Cough, unspecified (principal); E78.5 Hyperlipidemia, unspecified; R06.00 Dyspnea, unspecified
CPT/HCPCS: 36415; 71046; 80053; 80061; 83880; 85027

== ENCOUNTER 2024-10-26 09:19 | Outpatient (CLI) | payer MEDICARE, SELFPAY ==
--- OUTSIDE RECORDS SUMMARY | 2024-10-26 09:30 | XMS_ITS | Data Portability ---
Author Organization [facility] [employer], Main Office Address [address] [place] [address] Care Team Providers Care Plastic Shaper Name Role Phone NATHAN BILLINGS Primary Care [...] spent in treatment patient than half this [id number] conversation alanna Not available 09/17/2023 10:04:05 Plan of Treatment Reminders Order Date Submit Date Provider Last Modified By Organization Details Last Modified Time Details Appointments None recorded. Lab None recorded. Referral None recorded. Procedures injection/a spiration joint/bursa (PROC) - in office procedure, administere d by provider 2023 024 [email or web address] In-Office Order, Internal Use Only DO Not Attach Compendium DO Not Attach Compendium, Do Not Delete/merge, [id number] 09:51:05 Surgeries None recorded. Imaging XR, knee 2023 024 [email or web address] [facility] [facility] [address], [place], [address], 4 07:35:20 Medication Orders Kenalog 10 mg/mL suspension for injection 2023 024 [email or web address] [id number], [address] [place], [address], 4 07:35:20 ropivacaine (PF) 5 mg/mL (0.5 %) injection solution 2023 024 [email or web address] [id number], [address] [place], [address], 4 07:35:20 Patient TargetsNo targets recorded. Patient InstructionsNo instructions recorded. Reason for Referral None Reported. Results Created Date Observation Date Name Description Value Unit Range Abnormal Flag Note LastModifiedBy Organization Detail LastModifiedTime 09/17/19 24 XR, knee No observ ation record ed. [email or web address] [facility] [address], [place], [address], 09/17/2023 10:00:47 Result Notes None recorded. Problems Name Problem SNOMED Code Status Onset Date Resolution Date Notes Provider Name and Address Organization Details Recorded Time Pain of left knee joint 550412040004947 Active 2023 ROSITA Sorto, MD - [facility] 09:20:31 Problem Notes None recorded. Procedures Surgical History None recorded. Imaging Results Imaging Date Name Status LastModified by Organiz ation Details LastModified Time 09/17/2023 XR, knee completed [email or web address] [address], [place], [address], 09/17/2023 10:00:47 Procedure Notes None recorded. Medical [...] suspension for injection in office 2023 active [facility]: 0003- [id number] Not Available [...] Updated DateTime 09/17/2023 168.91 cm 30.5 kg/m2 12035.74 g ROSITA Sorto [facility] 09/17/2023 09:23:58 Social History Question Answer Notes LastModified by Organizat ion Details LastModified Time Tobacco Smoking Status Never Smoker ROSITA Sorto null [facility] 09/17/2023 09:19:04 What Is Your Level Of Alcohol Consumption? None [email or web address] Information not available 09/17/2023 Sex: Unknown Functional Status None recorded. Mental Status None recorded. Family History Nothing Reported. Medical History Condition Response CANCER: SPECIFY Y URINARY/BLADDER/KIDNEY PROBLEMS Y HYPERTENSION Y STROKE/TIA Y Past Encounters Encounter ID Performer Location Encounter Start Date Encounter Closed Date Diagnosis/Indication Diagnosis SNOMED-CT Code Diagnosis ICD10 Code Diagnosis Note [id number] KEYLA Booker [facility] [address] [place] [address] 09/17/2023 08:53:13 09/17/2023 10:05:29 Pain of left knee joint 8088117417 98029 M25.562 Health Concerns Section Related Observation LastModified by Organization Detai ls LastModified Time None Recorded Concern Status LastModified by Organization Details LastModified Time None Recorded Advance Directives Directive None Recorded Payers Encounter Date Sequence Insurance Name Policy Number Policy Andrews Covered Member ID Andrews Member ID Guarantor Name 09/17/2023 1 [place] Chinmay Julian [id number] Chinmay Julian 09/17/2023 2 [employer] SUPPLEMENTAL - [employer] (MEDICARE SUPPLEMENT) Chinmay Julian [id number] Chinmay Julian
--- OUTSIDE RECORDS SUMMARY | 2024-10-26 09:30 | XMS_ITS | Continuity of Care Document ---
Author Name [facility] Organization [facility] Care Team Providers Care Ic Design Engineer Name Role Phone [facility] Unavailable Unavailable Encounters [...] ADM Date DC Date Status Disposition Source [facility] Outpatient Encounter [id number] 07/22 [facility]
--- OUTSIDE RECORDS SUMMARY | 2024-10-26 09:30 | XMS_ITS | Clinical Summary ---
Author Organization [facility] Address [address] [place] [address] Care Team Providers Care Lace Finisher Name Role Phone Deshaun Mendoza MD Primary Care Provider [phone] Arvin Armando MD Unavailable Brook Samano FINAL FINISHER Unavailable [phone] Medications atorvastatin (LIPITOR) 40 MG tablet Take [...] with muscle involvement without evidence of necrosis ([facility]/HCC [facility]) Encounters Date Type Department Care Team Description 10/21/2024 8:00 AM VOCATIONAL CASE MANAGER - 10/21/2024 11:59 PM VOCATIONAL CASE MANAGER Hospital Encounter [facility] [address] [place] [address] Brook Samano, FINAL FINISHER Discharge Disposition: Home or Self Care (Routine Discharge) 10/21/2024 Travel 09/16/2024 7:54 AM VOCATIONAL CASE MANAGER - 09/16/2024 11:59 PM VOCATIONAL CASE MANAGER Hospital Encounter [facility] [address] [place] [address] Brook Samano, FINAL FINISHER Discharge Disposition: Home or Self Care (Routine Discharge) 09/16/2024 Travel 09/09/2024 8:30 AM VOCATIONAL CASE MANAGER - 09/09/2024 11:59 PM VOCATIONAL CASE MANAGER Hospital Encounter [facility] [address] [place] [address] Brook Samano, FINAL FINISHER Discharge Disposition: Home or Self Care (Routine Discharge) 09/09/2024 Travel 09/02/2024 7:56 AM VOCATIONAL CASE MANAGER - 09/02/2024 11:59 PM VOCATIONAL CASE MANAGER Hospital Encounter [facility] [address] [place] [address] Brook Samano, FINAL FINISHER Discharge Disposition: Home or Self Care (Routine Discharge) 09/02/2024 Travel 08/26/2024 8:00 AM VOCATIONAL CASE MANAGER - 08/26/2024 11:59 PM VOCATIONAL CASE MANAGER Hospital Encounter [facility] [address] [place] [address] Brook Samano, FINAL FINISHER Discharge Disposition: Home or Self Care (Routine Discharge) 08/26/2024 Travel 08/19/2024 8:00 AM VOCATIONAL CASE MANAGER - 08/19/2024 11:59 PM VOCATIONAL CASE MANAGER Hospital Encounter [facility] [address] [place] [address] Brook Samano, FINAL FINISHER Discharge Disposition: Home or Self Care (Routine Discharge) 08/19/2024 Travel 08/12/2024 8:00 AM VOCATIONAL CASE MANAGER - 08/12/2024 11:59 PM VOCATIONAL CASE MANAGER Hospital Encounter [facility] [address] [place] [address] Brook Samano, Sugar Edwards, BILLY Discharge Disposition: Home or Self Care (Routine Discharge) 08/12/2024 Travel 08/10/2024 1:30 PM VOCATIONAL CASE MANAGER Office Visit [facility] [place] [address] Arvin Armando MD Wound 08/10/2024 Telephone [facility] [address] [place] [address] Arvin Armando MD Follow Up Call (Carotid duplex with follow up appointment) 08/10/2024 Travel 08/09/2024 Telephone [facility] [address] [place] [address] Arvin Armando MD Appointment Reminder 08/04/2024 8:00 AM VOCATIONAL CASE MANAGER - 08/04/2024 11:59 PM VOCATIONAL CASE MANAGER Hospital Encounter [facility] [address] [place] [address] Brook Samano FNP Discharge Disposition: Home or Self Care (Routine Discharge) 08/04/2024 Travel 07/28/2024 7:58 AM VOCATIONAL CASE MANAGER - 07/28/2024 11:59 PM VOCATIONAL CASE MANAGER Hospital Encounter [facility] [address] [place] [address] Brook Samano FNP Discharge Disposition: Home or Self Care (Routine Discharge) 07/28/2024 Travel 07/26/2024 8:27 AM VOCATIONAL CASE MANAGER - 07/26/2024 11:59 PM VOCATIONAL CASE MANAGER Hospital Encounter [facility] [address] [place] [address] Brook Samano FNP Discharge Disposition: Home or Self Care (Routine Discharge) 07/26/2024 Travel from Last 3 Months Social History Tobacco Use Types Packs/Day Years Used Date Smoking Tobacco: Never Smokeless Tobacco: Never Tobacco Cessation:Counseling Given: Yes Sex and Gender Information Value Date Recorded Sex Assigned at Male 10/04/2024 2:50 PM VOCATIONAL CASE MANAGER Legal Sex Male 10:41 PM VOCATIONAL CASE MANAGER Gender Identity Male 07/12/2024 8:13 AM VOCATIONAL CASE MANAGER Sexual Orientation Not on file Last Filed Vital Signs Vital Sign Reading Time Taken Comments Blood Pressure 130/71 08/10/2024 1:40 PM VOCATIONAL CASE MANAGER Pulse 66 08/10/2024 1:40 PM VOCATIONAL CASE MANAGER Temperature - - Respiratory Rate 18 08/10/2024 1:40 PM VOCATIONAL CASE MANAGER Oxygen Saturation 95% 08/10/2024 1:40 PM VOCATIONAL CASE MANAGER Inhaled Oxygen Concentration - - Weight 84.6 kg (186 lb 6.4 oz) 08/10/2024 1:40 P M VOCATIONAL CASE MANAGER Height 172.7 cm (5' 8 ) 08/10/2024 1:40 PM VOCATIONAL CASE MANAGER Body Mass Index 28.34 08/10/2024 1:40 PM VOCATIONAL CASE MANAGER Plan of Treatment Health Maintenance Due Date [...] BODY FLUID CULTURE Routine 08/26/2024 8:20 AM VOCATIONAL CASE MANAGER 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 (CMS/HCC HHS/HCC) from Last 3 Months Results * CULTURE, WOUND, W/GRAM STAIN (08/26/2024 8:20 AM VOCATIONAL CASE MANAGER) SPEC DESCRIPTION LEG,RIGHT 08/26/2024 8:35 AM VOCATIONAL CASE MANAGER [facility] SPECIAL REQUESTS NO SPECIAL REQUEST 08/26/2024 8:35 AM VOCATIONAL CASE MANAGER [facility] GRAM STAIN RESULT RARE GRAM POSITIVE COCCI 08/26/2024 10:05 AM VOCATIONAL CASE MANAGER [facility] CULTURE RESULT FEW STAPHYLOCOCCU S AUREUS 08/28/2024 1:11 PM VOCATIONAL CASE MANAGER [facility] CULTURE RESULT FEW STAPHYLOCOCCU S, COAGULASE NEGATIVE 08/28/2024 1:11 PM VOCATIONAL CASE MANAGER [facility] STRUCTURE OF RIGHT LOWER LIMB / Unknown 08/26/2024 8:20 AM VOCATIONAL CASE MANAGER 08/26/2024 8:38 AM VOCATIONAL CASE MANAGER Narrative Organism Antibiotic Method Susceptibility Staphylococcus aureus [...] MICROBIOLOGY - GENERAL ORDERAB LES Final Result [facility] [address] [place] [address], [id number] [facility] [address] [place] [address], from Last 3 Months Insurance MEDICARE [employer] Care Teams Lace Finisher Relationship Specialty Start Date End Date Deshaun Mendoza MD [address] [place] [id number] PCP - General INTERNAL MEDICINE 07/07/24 Arvin Armando MD [address] [place] [address] Consulting Physician INTERNAL MEDICINE 07/15/24 5 Brook Samano, FINAL FINISHER [address] [place] [address] Nurse Practitioner Nurse Practitioner Family 07/15/24
== END 2024-10-26 09:20 | disposition home or self-care (01) ==
LOC: CHSCARD 09:22
PROVIDERS: PCP Internal Medicine; Visit Provider Internal Medicine
DX: R05.9 Cough, unspecified (principal); R94.2 Abnormal results of pulmonary function studies
CPT/HCPCS: 94060; 94726; 94729

== ENCOUNTER 2025-01-14 00:40 | Day surgery (SDC) | payer MEDICARE, SELFPAY ==
[2025-01-04 10:36] VITALS: BMI 27.3
--- NOTE | 2025-01-04 10:48 | PC.NURSE ---
Spoke with patient regarding medication Plavix. Patient verbalizes understanding that the last dose is to be taken on 01/09/2025 and the Endoscopist will instruct them when to restart after the procedure.
--- OUTSIDE RECORDS SUMMARY | 2025-01-14 00:43 | XMS_ITS | Clinical Summary ---
Author Organization [facility] Address [address] [place] [address] Care Team Providers Care Corncob Pipe Supervisor Name Role Phone Deshaun Mendoza MD Primary Care Provider [phone] Arvin Armando MD Unavailable Brook Samano FAMILY CONSUMER SCIENCE TEACHER Unavailable [phone] Medications atorvastatin (LIPITOR) 40 MG tablet [...] with muscle involvement without evidence of necrosis ([facility]) Encounters Date Type Department Care Team Description 12/10/[address] [facility] [address] [place] [phone] French Reilly MD Reschedule 10/21/2024 8:00 AM BENCH ASSEMBLER OPERATOR - 10/21/2024 11:59 PM BENCH ASSEMBLER OPERATOR Hospital Encounter [facility] [address] [place] [address] Brook Samano, FAMILY CONSUMER SCIENCE TEACHER Discharge Disposition: Home or Self Care (Routine Discharge) 10/21/2024 Travel from Last 3 Months Social History Tobacco Use Types Packs/Day Years Used Date Smoking Tobacco: Never Smokeless Tobacco: Never Tobacco Cessation:Counseling Given: Yes Sex and Gender Information Value Date Recorded Sex Assigned at Male 10/04/2024 2:50 PM BENCH ASSEMBLER OPERATOR Legal Sex Male 10:41 PM BENCH ASSEMBLER OPERATOR Gender Identity Male 07/12/2024 8:13 AM BENCH ASSEMBLER OPERATOR Sexual Orientation Not on file Last Filed Vital Signs Vital Sign Reading Time Taken Comments Blood Pressure 130/71 08/10/2024 1:40 PM BENCH ASSEMBLER OPERATOR Pulse 66 08/10/2024 1:40 PM BENCH ASSEMBLER OPERATOR Temperature - - Respiratory Rate 18 08/10/2024 1:40 PM BENCH ASSEMBLER OPERATOR Oxygen Saturation 95% 08/10/2024 1:40 PM BENCH ASSEMBLER OPERATOR Inhaled Oxygen Concentration - - Weight 84.6 kg (186 lb 6.4 oz) 08/10/2024 1:40 P M BENCH ASSEMBLER OPERATOR Height 172.7 cm (5' 8 ) 08/10/2024 1:40 PM BENCH ASSEMBLER OPERATOR Body Mass Index 28.34 08/10/2024 1:40 PM BENCH ASSEMBLER OPERATOR Plan of Treatment Health Maintenance Due Date Last Done Comments Hepatitis C 1966 Pneumococcal Vaccine: 50+ Ye ars (1 of 1 - PCV) 1998 Zoster Vaccines (1 of 2) 1998 Annual Medicare Wellness Visit 2013 RSV Immunization or 60+ Years (1 - 1-dose 75+ series) 2023 COVID-19 Vaccine ( - 2023-2 5 season) 2024 DTaP, Tdap and Td Vaccines ( [...] on patient's age to complete this topic Insurance MEDICARE [facility] Care Teams Corncob Pipe Supervisor Relationship Specialty Start Date End Date Deshaun Mendoza MD [address] [place] [phone] PCP - General INTERNAL MEDICINE 07/07/24 Arvin Armando MD [address] [address] Consulting Physician INTERNAL MEDICINE 07/15/24 5 Brook Samano, [facility] [address] [place] [address] [place] [address] Nurse Practitioner Nurse Practitioner Family 07/15/24
--- OUTSIDE RECORDS SUMMARY | 2025-01-14 00:43 | XMS_ITS | Data Portability ---
Author Organization [facility] [employer], Main Office Address [address] [place] [address] Care Team Providers Care Lawyer Criminal Name Role Phone NATHAN BILLINGS Primary Care Provider [phone] NATHAN BILLINGS Referring Provider [phone] Assessment Encounter Date Assessment Date Assessment LastModified [...] spent in treatment patient than half this [id number] conversation alanna Not available 09/17/2023 10:04:05 Plan of Treatment Reminders Order Date Submit Date Provider Last Modified By Organization Details Last Modified Time Details Appointments None recorded. Lab None recorded. Referral None recorded. Procedures injection/a spiration joint/bursa (PROC) - in office procedure, administere d by provider 2023 024 [email or web address] In-Office Order, Internal Use Only DO Not Attach Compendium DO Not Attach Compendium, Do Not Delete/merge, [id number] 4 09:51:05 Surgeries None recorded. Imaging XR, knee 2023 024 [email or web address] [facility] [place], [employer] [facility] [facility] [address], [place], [address], 4 07:35:20 Medication Orders Kenalog 10 mg/mL suspension for injection 2023 024 [email or web address] [id number], [address] [place], [address], 4 07:35:20 ropivacaine (PF) 5 mg/mL (0.5 %) injection solution 2023 024 [email or web address] [id number], [address] [place], [address], 4 07:35:20 Patient TargetsNo targets recorded. Patient InstructionsNo instructions recorded. Reason for Referral None Reported. Results Created Date Observation Date Name Description Value Unit Range Abnormal Flag Note LastModifiedBy Organization Detail LastModifiedTime 09/17/19 24 XR, knee No observ ation record ed. [email or web address] [facility] [place] [address], [place], [address], 09/17/2023 10:00:47 Result Notes None recorded. Problems Name Problem SNOMED Code Status Onset Date Resolution Date Notes Provider Name and Address Organization Details Recorded Time Pain of left knee joint 385830744046421 Active 2023 ROSITA Sorto, [place] - [facility] 09:20:31 Problem Notes None recorded. Procedures Surgical History None recorded. Imaging Results Imaging Date Name Status LastModified by Organiz ation Details LastModified Time 09/17/2023 XR, knee completed [email or web address] [place] [address], [place], [address], 09/17/2023 10:00:47 Procedure Notes None recorded. Medical [...] suspension for injection in office 2023 active [facility]: [phone] [phone] Not Available [...] Updated DateTime 09/17/2023 168.91 cm 30.5 kg/m2 08814.74 g ROSITA Sorto [facility] [employer] [facility] 09/17/2023 09:23:58 Social History Question Answer Notes LastModified by Organizat ion Details LastModified Time Tobacco Smoking Status Never Smoker ROSITA Sorto null [facility] [employer] [facility] 09/17/2023 09:19:04 What Is Your Level Of Alcohol Consumption? None [email or web address] Information not available 09/17/2023 Sex: Unknown Functional Status None recorded. Mental Status None recorded. Family History Nothing Reported. Medical History Condition Response CANCER: SPECIFY Y URINARY/BLADDER/KIDNEY PROBLEMS Y HYPERTENSION Y STROKE/TIA Y Past Encounters Encounter ID Performer Location Encounter Start Date Encounter Closed Date Diagnosis/Indication Diagnosis SNOMED-CT Code Diagnosis ICD10 Code Diagnosis Note [id number] Rodriguez Syed MD [facility] [place] [address] [place] [address] 09/17/2023 08:53:13 09/17/2023 10:05:29 Pain of left knee joint [id number] 19902 M25.562 Health Concerns Section Related Observation LastModified by Organization Detai ls LastModified Time None Recorded Concern Status LastModified by Organization Details LastModified Time None Recorded Advance Directives Directive None Recorded Payers Encounter Date Sequence Insurance Name Policy Number Policy Andrews Covered Member ID Andrews Member ID Guarantor Name 09/17/2023 1 [place] Chinmay Julian [id number] Chinmay Julian 09/17/2023 2 [employer] SU[employer]LEMENTAL - [employer] (MEDICARE SUPPLEMENT) Chinmay Julian [id number] Chinmay Julian
[2025-01-14 13:21] VITALS: BP 137/77; PULSE 60; RESP 20; TEMP 36.6; O2SAT 98
--- NOTE | 2025-01-14 13:29 | P.PNAN_ITS ---
Anes - Initial Pre Proc Eval Procedure: Operation Date: 01/14/25 14:30 Proposed Procedures p Colonoscopy - Fito Aguayo MD Date/Time: 01/14/25 13:29 Surgeon: Fito Aguayo MD Pre Op Diagnosis: Personal history of colon polyps, unspecified Patient Data Age: 74 Gender: M Height: 1.73 m Weight: 83.6 kg Last Vital Signs Temp 98 F 01/14/25 13:21 Pulse 60 01/14/25 13:21 Resp 20 01/14/25 13:21 BP 137/77 01/14/25 13:21 Pulse Ox 98 01/14/25 13:21 O2 Del Method Room Air 01/14/25 13:21 Allergies Allergy/AdvReac Type Severity Reaction Status Date / Time lisinopril Allergy Mild Itching Verified 01/14/25 13:18 Home Medications ?Medication ?Instructions ?Recorded ?Confirmed ?Type atorvastatin 40 mg tablet 40 mg PO DAILY 10/11/19 01/14/25 History clopidogrel 75 mg tablet 75 mg PO DAILY 10/11/19 01/14/25 History hydrochlorothiazide 25 mg tablet 25 mg PO DAILY 10/11/19 01/14/25 History irbesartan 75 mg tablet 75 mg PO DAILY 10/11/19 01/14/25 History pantoprazole 40 mg tablet,delayed 40 mg PO BID #60 tabs 10/13/19 01/14/25 Rx release oxybutynin chloride 5 mg 5 mg PO DAILY 05/31/24 01/14/25 History tablet,extended release 24 hr tamsulosin 0.4 mg capsule 0.4 mg PO DAILY 05/31/24 01/14/25 History montelukast 10 mg tablet 10 mg PO DAILY 01/04/25 01/14/25 History Patient hx anesthesia problems: none Family hx anesthesia problems: none Results Review: All pre-operative results and documents have been reviewed as part of the pre- operative evaluation. 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 RIGHT SIDED WEAKNESS AND RIGHT SLDR PAIN Gastroesophageal reflux disease Hypercholesterolemia Hypertension Prostate CA PUD (peptic ulcer disease) NON BLEEDING GASTRIC 06/2019 Surgical History Surgical History History of tonsillectomy Family History Family History Mother Heart disease Father Heart disease Social History Social History Smoking status: Never smoker Alcohol intake: never Substance use type: does not use Living arrangements: with family Gender identity (if verbalized by the patient): Male Spiritual care concerns: No Anes - Eval Final PreProcedure Day of Procedure 01/14/25 13:29 Patient weight: normal Heart: regular rate and rhythm Lungs: clear to auscultation Airway: Mallampati scale class II Neurological: alert and oriented Last oral intake: >/= 8 hours ASA classification: III Emergent: no Anesthetic plan: proceed Anesthesia type and monitoring: general GIVS and standard monitoring Results Review: All pre-operative results and documents have been reviewed as part of the pre- operative evaluation. Informed Consent: The patient's anesthetic plan and its attendant risks and benefits were discussed with the patient/family/POA. Questions were solicited and answers provided to the satisfaction of the patient/family/POA.
[2025-01-14] MEDS: LACTATED RINGERS 1,000 ML 150 ML IV CONT (13:35)
--- NOTE | 2025-01-14 14:07 | PM.HPGS ---
History of Present Illness History of Present Illness Consent: Risks, benefits, and alternatives have been discussed and questions answered. Patient agrees to proceed with procedure. 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 RIGHT SIDED WEAKNESS AND RIGHT SLDR PAIN Hypertension Surgical History Surgical History History of tonsillectomy Family History Family History Mother Heart disease Father Heart disease Social History Social History Smoking status: Never smoker Alcohol intake: never Substance use type: does not use Living arrangements: with family Gender identity (if verbalized by the patient): Male Spiritual care concerns: No Meds Home Medications and Allergies Home Medications ?Medication ?Instructions ?Recorded ?Confirmed ?Type atorvastatin 40 mg tablet 40 mg PO DAILY 10/11/19 01/14/25 History clopidogrel 75 mg tablet 75 mg PO DAILY 10/11/19 01/14/25 History hydrochlorothiazide 25 mg tablet 25 mg PO DAILY 10/11/19 01/14/25 History irbesartan 75 mg tablet 75 mg PO DAILY 10/11/19 01/14/25 History pantoprazole 40 mg tablet,delayed 40 mg PO BID #60 tabs 10/13/19 01/14/25 Rx release oxybutynin chloride 5 mg 5 mg PO DAILY 05/31/24 01/14/25 History tablet,extended release 24 hr tamsulosin 0.4 mg capsule 0.4 mg PO DAILY 05/31/24 01/14/25 History montelukast 10 mg tablet 10 mg PO DAILY 01/04/25 01/14/25 History Allergies Allergy/AdvReac Type Severity Reaction Status Date / Time lisinopril Allergy Mild Itching Verified 01/14/25 13:18 Vital Signs Vital Signs - 24 hr 01/14/25 13:21 Temperature 98 F Pulse Rate 60 Respiratory Rate 20 Blood Pressure 137/77 Pulse Oximetry 98 Oxygen Delivery Room Air Exam Const: General: comfortable and no acute distress HENMT: Face/Nose/Sinus: Normal nares present Eyes: General: appearance normal, both eyes and all related structures Neck: Neck: no JVD Resp: Auscultation: clear to auscultation bilaterally Cardio: Rate: regular rate Rhythm: regular rhythm GI: Inspection: non-distended GI Palp: Yes Soft to palpation Skin: General skin exam: normal color Neuro: General: gait normal Speech: normal speech Extrem: General: normal to inspection Psych: Mental Status: mental status grossly normal Assessment and Plan Assessment and plan (1) Colon polyp: Code(s): K63.5 - Polyp of colon Status: Acute Assessment and Plan: colonoscopy
[2025-01-14 14:26] VITALS: BP 96/57; PULSE 74; RESP 15; O2SAT 94
[2025-01-14 14:36] VITALS: BP 112/65; PULSE 65; RESP 18; O2SAT 98
[2025-01-14 14:46] VITALS: BP 107/63; PULSE 53; RESP 14; O2SAT 96
== END 2025-01-14 15:03 | disposition home or self-care (01) ==
PROVIDERS: PCP Internal Medicine; Referring Provider Internal Medicine Gastroenterology; Visit Provider Internal Medicine Gastroenterology
PROC: 0DJD8ZZ Inspection of Lower Intestinal Tract, Via Natural or Artificial Opening Endoscopic (ICD-10-PCS; CPT 45378; principal; 2025-01-14 14:30)
DX: Z12.11 Encounter for screening for malignant neoplasm of colon (principal); D12.2 Benign neoplasm of ascending colon; D12.5 Benign neoplasm of sigmoid colon; K64.8 Other hemorrhoids; K57.30 Diverticulosis of large intestine without perforation or abscess without bleeding; I10 Essential (primary) hypertension; N40.0 Benign prostatic hyperplasia without lower urinary tract symptoms; K21.9 Gastro-esophageal reflux disease without esophagitis; E78.00 Pure hypercholesterolemia, unspecified; D62 Acute posthemorrhagic anemia; Z79.02 Long term (current) use of antithrombotics/antiplatelets; Z98.890 Other specified postprocedural states; Z87.11 Personal history of peptic ulcer disease; Z85.46 Personal history of malignant neoplasm of prostate; Z86.79 Personal history of other diseases of the circulatory system; Z82.49 Family history of ischemic heart disease and other diseases of the circulatory system
CPT/HCPCS: 45385; 88305; J2003; J2704; J7120